=== PATIENT | female | born 1930 | race Hispanic/Latino ===

== ENCOUNTER 2017-07-27 07:52 | Inpatient (IN) | payer MEDICARE, OTHER ==
--- NOTE | 2017-07-27 08:37 | C.PDOC ---
History Of Present Illness 87 year old female presents to the ED with complaints of right hip pain, status post mechanical fall just [employer]. Patient reports she reached for her bag and fell , injuring her right hip. Patient denies precipitating symptoms, including syncope, dizziness, chest pain, shortness of breath, or headache. - HPI Time Seen by Provider: 07/27/17 08:01 Chief Complaint (Nursing): Trauma History Per: Patient History/Exam Limitations: no limitations Onset/Duration Of Symptoms: Mins Injury Occurred (Timing): Just Before Arrival Location Of Injury: Right: Hip Recent travel outside of the [place]: No - Fall Fall:Prior To Injury: Other (mechanical fell ) Past Medical History Reviewed: Historical Data, Nursing Documentation, Vital Signs Vital Signs: Last Vital Signs Temp 98.2 F 07/27/17 10:56 Pulse 77 07/27/17 10:56 Resp 17 07/27/17 10:56 BP 118/69 07/27/17 10:56 Pulse Ox 98 07/27/17 12:10 - Medical History PMH: HTN Family History: States: Unknown Family Hx - Social History Hx Alcohol Use: No Hx Substance Use: No Review Of Systems Constitutional: Negative for: Fever, Chills Cardiovascular: Negative for: Chest Pain, Palpitations Respiratory: Negative for: Cough, Shortness of Breath Gastrointestinal: Negative for: Nausea, Vomiting, Abdominal Pain, Diarrhea Musculoskeletal: Positive for: Other (right hip pain ) Neurological: Negative for: Weakness, Numbness Physical Exam - Physical Exam Appears: Non-toxic, No Acute Distress Skin: Warm, Dry, No Rash, Other (skin tear to left elbow ) Head: Atraumatic, Normacephalic, No Tenderness Eye(s): bilateral: Normal Inspection, PERRL, EOMI Oral Mucosa: Moist Neck: No Midline Cervical Tenderness, No Paracervical Tenderness, No Step Off Deformity, Supple Chest: Symmetrical, No Deformity Cardiovascular: Rhythm Regular, No Murmur Respiratory: No Rales, No Rhonchi, No Wheezing, Other (clear to auscultation bilaterally ) Gastrointestinal/Abdominal: Soft, No Tenderness, No Distention, No Guarding, No Rebound Back: No Vertebral Tenderness, No Paraspinal Tenderness Extremity: Tenderness (lateral right hip tenderness with N/V intact ), No Pedal Edema, No Calf Tenderness, Capillary Refill (< 2 seconds ), No Deformity, No Swelling ED Course And Treatment - Laboratory Results Result Diagrams: 07/27/17 10:30 07/27/17 10:30 ECG: Interpreted By Me, Viewed By Me ECG Rhythm: Sinus Rhythm Interpretation Of ECG: Poor R wave progression, T-wave flattening, normal intervals, and atrifactual changes. Rate From EC O2 Sat by Pulse Oximetry: 98 (RA) Pulse Ox Interpretation: Normal - Radiology CXR: Viewed By Me, Read By Radiologist CXR Interpretation: Yes: No Acute Disease - Other Rad Right Hip X-Ray X-Ray: Viewed By Me, Read By Radiologist Interpretation: FINDINGS: Extensive stool and bowel gas impede optimal evaluation of potential sacral pathology. . Background generalized osteopenia noted. There is central postsurgical charito oriented in ring. Infero medial femoral spurring acetabular spurring present. Axial oriented joint-space narrowing most pronounced inferomedially. No fracture or dislocation suggested. Incidentally noted are hypertrophic productive osseous changes in the left hip as well. IMPRESSION: No fracture or dislocation. No lytic lesions. Generalized osteopenia. Bilateral hip osteoarthrosis. Postsurgical changes. - CT Scan/US Head CT W/O contrast Other Rad Studies (CT/US): Read By Radiologist, Radiology Report Reviewed CT/US Interpretation: FINDINGS: HEMORRHAGE: No intracranial hemorrhage. BRAIN : Diffuse atrophy with prominence of the ventricles and sulci noted. No mass effect or edema. Dense intracranial atherosclerosis. Scattered periventricular and subcortical white matter hypodensities, which are nonspecific, but often seen with chronic microvascular ischemic disease. Please note that MRI with diffusion imaging is more sensitive in the detection of acute ischemic event. VENTRICLES: No hydrocephalus. CALVARIUM: Unremarkable. PARANASAL SINUSES: Unremarkable as visualized. No significant inflammatory changes. MASTOID AIR CELLS: Fluid within bilateral mastoid air cells ; correlate for mastoiditis. OTHER FINDINGS: None. IMPRESSION: Generalized atrophy. Nonspecific white matter changes. Fluid within bilateral mastoid air cells; correlate for mastoiditis Progress Note: Head CT w/o contrast, EKG, blood work, labs, CXR, and right hip X -Ray was ordered. - Physician Consult Information Time Consulting Physician Contacted: 11:36 Physician Contacted: Anupam Young Outcome Of Conversation: Dr. Young agrees to admit patient to [facility] for near syncope and hypokalemia. Disposition Discussed With : Anupam Young Counseled Patient/Family Regarding: Studies Performed, Diagnosis - Disposition Disposition: HOSPITALIZED Disposition Time: 12:09 Condition: FAIR - Clinical Impression Clinical Impression: Hypokalemia, Near syncope Clinical Impression: (Ruled Out): Symptomatic anemia - Scribe Statement The provider has reviewed the documentation as recorded by the Shiraibshivam Godfrey All medical record entries made by the Gregoria were at my direction and personally dictated by me. I have reviewed the chart and agree that the record accurately reflects my personal performance of the history, physical exam, medical decision making, and the department course for this patient. I have also personally directed, reviewed, and agree with the discharge instructions and disposition.
--- NOTE | 2017-07-27 10:17 | CT ---
PROCEDURE: CT HEAD WITHOUT CONTRAST. HISTORY: R/O Bleed COMPARISON: None available. TECHNIQUE: Axial computed tomography images were obtained through the head/brain without intravenous contrast. Radiation dose: Total exam DLP = 701.95 mGy-cm. This CT exam was performed using one or more of the following dose reduction techniques: Automated exposure control, adjustment of the mA and/or kV according to patient size, and/or use of iterative reconstruction technique. FINDINGS: HEMORRHAGE: No intracranial hemorrhage. BRAIN: Diffuse atrophy with prominence of the ventricles and sulci noted. No mass effect or edema. Dense intracranial atherosclerosis. Scattered periventricular and subcortical white matter hypodensities, which are nonspecific, but often seen with chronic microvascular ischemic disease. Please note that MRI with diffusion imaging is more sensitive in the detection of acute ischemic event. VENTRICLES: No hydrocephalus. CALVARIUM: Unremarkable. PARANASAL SINUSES: Unremarkable as visualized. No significant inflammatory changes. MASTOID AIR CELLS: Fluid within bilateral mastoid air cells ; correlate for mastoiditis. OTHER FINDINGS: None. IMPRESSION: Generalized atrophy. Nonspecific white matter changes. Fluid within bilateral mastoid air cells; correlate for mastoiditis
[2017-07-27 10:38] LABS: BASO % 0.1 % (0.0-2.0); HEMATOCRIT 30.7 % (34.0-47.0); LYMPH # 0.7 K/uL (1.0-4.3); LYMPH % 9.6 % (20.0-40.0); MEAN CELL VOLUME 91.1 fL (81.0-99.0); MEAN CORPUSCULAR HEMOGLOBIN 29.9 pg (27.0-31.0); MEAN CORPUSCULAR HGB CONC 32.8 g/dL (33.0-37.0); MEAN PLATELET VOLUME 6.6 fL (7.2-11.7); MONO # 0.5 K/uL (0.0-0.8); MONO % 5.8 % (0.0-10.0); PLATELET COUNT 213 K/uL (130-400); RED CELL DISTRIBUTION WIDTH 15.1 % (11.5-14.5); WHITE BLOOD COUNT 7.8 K/uL (4.8-10.8)
[2017-07-27 10:45] LABS: INR 1.2
--- NOTE | 2017-07-27 10:49 | RAD ---
PROCEDURE: CHEST RADIOGRAPH, 1 VIEW HISTORY: SOB COMPARISON: None. FINDINGS: LUNGS: Fibronodular changes primarily in the apices with pleural parenchymal thickening. No discrete nodules, masses or infiltrates findings are likely the sequela of exposure to granulomatous disease. PLEURA: No pneumothorax or pleural fluid seen. CARDIOVASCULAR: No radiographic findings to suggest acute or significant cardiovascular disease. OSSEOUS STRUCTURES: No significant abnormalities. VISUALIZED UPPER ABDOMEN: Normal. OTHER FINDINGS: None. IMPRESSION: No active disease.
--- NOTE | 2017-07-27 10:50 | RAD ---
PROCEDURE: HISTORY: fall COMPARISON: None TECHNIQUE: AP view of the pelvis and applicable frog leg views obtained. FINDINGS: Extensive stool and bowel gas impede optimal evaluation of potential sacral pathology. . Background generalized osteopenia noted. There is central postsurgical charito oriented in ring. Infero medial femoral spurring acetabular spurring present. Axial oriented joint-space narrowing most pronounced inferomedially. No fracture or dislocation suggested. Incidentally noted are hypertrophic productive osseous changes in the left hip as well. IMPRESSION: No fracture or dislocation. No lytic lesions. Generalized osteopenia. Bilateral hip osteoarthrosis. Postsurgical changes.
[2017-07-27 11:20] LABS: NEUTROPHIL 88 % (50-75); TOTAL CELLS COUNTED 100
[2017-07-27 11:22] LABS: ALKALINE PHOSPHATASE 101 U/L (38-126); ALT/SGPT 35 U/L (9-52); BLOOD UREA NITROGEN 22 mg/dL (7-17); CALCIUM 7.3 mg/dl (8.6-10.4); CARBON DIOXIDE 32 mmol/L (22-30); CHLORIDE 95 mmol/L (98-107); GFR AFRICAN-AMERICAN > 60; GLUCOSE,RANDOM 62 mg/dL (65-105); SODIUM 134 mmol/L (132-148); TOTAL PROTEIN 5.3 g/dL (6.3-8.3)
[2017-07-27] MEDS ORDERED: Potassium Chloride 20 mEq ER Tab PO ONE ×2 (11:35→11:40)
[2017-07-27] MEDS: Potassium Chloride 20 mEq ER Tab PO SCH (11:37)
[2017-07-27 11:38] LABS: ALB/GLOB RATIO 1.2 (1.0-2.1); AST/SGOT 34 U/L (14-36); POTASSIUM 2.5 mmol/L (3.6-5.2)
[2017-07-27] MEDS ORDERED: [UNRECOGNIZED DRUG - OTHER] IV SCH (11:45)
[2017-07-27] MEDS ORDERED: POTASSIUM CH IV SCH (11:45)
[2017-07-27] MEDS ORDERED: D5 IV SCH (11:45)
[2017-07-27] MEDS ORDERED: Tramadol 25 mg PO PRN (18:28)
--- NOTE | 2017-07-27 21:48 | CP.PCM.HP ---
History of Present Illness - History of Present Illness History of Present Illness: 87 years old female felt at home and hit her right hip to the floor. She denies any dizziness, any palpitation, any loss of conciousness, Now she is complaining of a severe right hip pain. A CT scan of the head reveals fluid in the mastoid air cells, brain atrophy. Right hip X ray did not reveal any dislocation or fracture. Her K+: 2.5 and Hgb: 10.1. She is also complaining of diarrhea on and off for the past few months. According to her son, she is slightly confused, and lives alone in her own home. Present on Admission - Present on Admission Any Indicators Present on Admission: No Review of Systems - Gastrointestinal Gastrointestinal: Diarrhea - Neurological Neurological: Weakness Past Patient History - Past Medical History & Family History Past Medical History?: Yes - Past Social History Smoking Status: Never Smoked Alcohol: None Drugs: Denies Home Situation {Lives}: Alone - CARDIAC Hx Cardiac Disorders: Yes Hx Hypertension: Yes - PULMONARY Hx Respiratory Disorders: No - NEUROLOGICAL Hx Neurological Disorder: No - HEENT Hx HEENT Problems: No - RENAL Hx Chronic Kidney Disease: No - ENDOCRINE/METABOLIC Hx Endocrine Disorders: Yes Hx Hypothyroidism: Yes - HEMATOLOGICAL/ONCOLOGICAL Hx Blood Disorders: No - INTEGUMENTARY Hx Dermatological Problems: No - MUSCULOSKELETAL/RHEUMATOLOGICAL Hx Musculoskeletal Disorders: Yes Hx Falls: Yes - GASTROINTESTINAL Hx Gastrointestinal Disorders: Yes Hx Diarrhea: Yes (FEW MONTHS) - GENITOURINARY/GYNECOLOGICAL Hx Genitourinary Disorders: No - PSYCHIATRIC Hx Substance Use: No - SURGICAL HISTORY Hx Surgeries: No - ANESTHESIA Hx Anesthesia: No Hx Anesthesia Reactions: No Meds Allergies/Adverse Reactions: Allergies Allergy/AdvReac Type Severity Reaction Status Date / Time No Known Allergies Allergy Verified 07/27/17 08:48 Physical Exam - Constitutional Appears: No Acute Distress, Cachectic, Chronically Ill - Head Exam Head Exam: NORMAL INSPECTION - Eye Exam Eye Exam: Normal appearance - ENT Exam ENT Exam: Normal Exam - Neck Exam Neck exam: Positive for: Normal Inspection - Respiratory Exam Respiratory Exam: Clear to Auscultation Bilateral - Cardiovascular Exam Cardiovascular Exam: REGULAR RHYTHM - GI/Abdominal Exam GI & Abdominal Exam: Normal Bowel Sounds, Soft - Rectal Exam Rectal Exam: Deferred - Extremities Exam Extremities exam: Positive for: pedal edema - Back Exam Back exam: NORMAL INSPECTION - Neurological Exam Neurological exam: Alert, Oriented x3 - Psychiatric Exam Psychiatric exam: Anxious - Skin Skin Exam: Dry, Intact, Normal Color, Warm Results - Vital Signs Recent Vital Signs: Last Vital Signs Temp 97.5 F L 07/27/17 15:59 Pulse 72 07/27/17 15:59 Resp 20 07/27/17 15:59 BP 145/70 07/27/17 15:59 Pulse Ox 99 07/27/17 15:59 - Labs Result Diagrams: 07/27/17 10:30 07/27/17 10:30 Labs: Laboratory Results - last 24 hr 07/27/17 07/27/17 07/27/17 10:30 10:30 10:30 WBC 7.8 RBC 3.37 L Hgb 10.1 L Hct 30.7 L MCV 91.1 MCH 29.9 MCHC 32.8 L RDW 15.1 H Plt Count 213 MPV 6.6 L Neut % (Auto) 84.5 H Lymph % (Auto) 9.6 L Dickson % (Auto) 5.8 Eos % (Auto) 0.0 Baso % (Auto) 0.1 Neut # 6.6 Lymph # 0.7 L Dickson # 0.5 Eos # 0.0 Baso # 0.0 Neutrophils % (Manual) 88 H Band Neutrophils % 3 H Lymphocytes % (Manual) 7 L Monocytes % (Manual) 2 Platelet Estimate Normal Polychromasia Slight Hypochromasia (manual) Slight Anisocytosis (manual) Slight Ovalocytes Slight PT 13.6 H INR 1.2 APTT 30 Sodium 134 Potassium 2.5 L* Chloride 95 L Carbon Dioxide 32 H Anion Gap 10 BUN 22 H Creatinine 0.7 Est GFR ( Amer) > 60 Est GFR (Non-Af Amer) > 60 Random Glucose 62 L Calcium 7.3 L Total Bilirubin 2.0 H AST 34 ALT 35 Alkaline Phosphatase 101 Total Creatine Kinase 223 H Troponin I 0.0120 Total Protein 5.3 L Albumin 2.8 L Globulin 2.4 Albumin/Globulin Ratio 1.2 Assessment & Plan (1) Hypokalemia Assessment and Plan: Replace K+. Status: Acute (2) Fall Status: Acute (3) Anemia Assessment and Plan: R/o GI bleeding. Status: Acute (4) Malnutrition Assessment and Plan: Social service evaluation, and physical therapy. Status: Acute Decision To Admit - Pt Status Changed To: Hospital Disposition Of: Inpatient - Admit Certification Admit to Inpatient:: After my assessment, the patient will require hospitalization for at least two midnights. This is because of the severity of symptoms shown, intensity of services needed, and/or the medical risk in this patient being treated as an outpatient. - InPatient: Physician Admission Certification:: After my assessements, the patient requires hospitalization for at least 2 midnights. - . Bed Request Type: Telemetry Admitting Physician: Anupam Young
[2017-07-28] MEDS: Levothyroxine 25 MCG TAB PO SCH (05:39)
[2017-07-28 07:01] LABS: BASO % 0.3 % (0.0-2.0); EOS % 0.2 % (0.0-4.0); HEMATOCRIT 27.3 % (34.0-47.0); LYMPH # 1.1 K/uL (1.0-4.3); LYMPH % 24.6 % (20.0-40.0); MEAN CELL VOLUME 91.5 fL (81.0-99.0); MEAN CORPUSCULAR HEMOGLOBIN 30.9 pg (27.0-31.0); MEAN CORPUSCULAR HGB CONC 33.7 g/dL (33.0-37.0); MEAN PLATELET VOLUME 6.9 fL (7.2-11.7); MONO # 0.3 K/uL (0.0-0.8); MONO % 7.2 % (0.0-10.0); RED CELL DISTRIBUTION WIDTH 15.8 % (11.5-14.5); WHITE BLOOD COUNT 4.7 K/uL (4.8-10.8)
[2017-07-28 07:31] LABS: IRON 21 ug/dL (37-170)
[2017-07-28 07:43] LABS: ALKALINE PHOSPHATASE 90 U/L (38-126); ALT/SGPT 33 U/L (9-52); AST/SGOT 29 U/L (14-36); BILIRUBIN,TOTAL 1.5 mg/dL (0.2-1.3); BLOOD UREA NITROGEN 23 mg/dL (7-17); CALCIUM 7.2 mg/dl (8.6-10.4); CARBON DIOXIDE 32 mmol/L (22-30); CHLORIDE 97 mmol/L (98-107); GFR AFRICAN-AMERICAN > 60; GLUCOSE,RANDOM 61 mg/dL (65-105); POTASSIUM 3.2 mmol/L (3.6-5.2); SODIUM 133 mmol/L (132-148); TOTAL PROTEIN 4.7 g/dL (6.3-8.3)
[2017-07-28 08:02] LABS: THYROID STIMULATING HORMONE 2.55 mIU/L (0.46-4.68)
[2017-07-28 08:36] LABS: FOLATE 8.9 ng/mL
[2017-07-28] MEDS: Enoxaparin 40 mg Syringe SC SCH (09:13)
[2017-07-28] MEDS: Potassium Chloride 20 mEq ER Tab PO SCH (10:00)
[2017-07-28] MEDS ORDERED: Potassium Chloride 20 mEq/15 ml LIQ UD PO STA (20:14)
--- NOTE | 2017-07-28 21:01 | CP.PCM.PN ---
Subjective - Date & Time of Evaluation Date of Evaluation: 07/28/17 Time of Evaluation: 20:54 - Subjective Subjective: Patient remains weak, with appetite. BP: 102/60 HR: 66 regular. Afebrile. Hgb: 9.2 Serum iron : low. Stools for OB: negative. Stools for leucocytes: negative. Liver enzymes slightly elevated. Serum protein and albumin :low. K+: 3.2. Wll replace Potassiium, order a CTscan of the abdomen and pelvis, get serum marker for occult malignacy. To continue sacral wound care, biomedical engineering internship evaluation, and physical therapy. Objective - Vital Signs/Intake and Output Vital Signs (last 24 hours): Temp Pulse Resp BP Pulse Ox 98.2 F 65 18 120/57 L 96 07/28/17 15:12 07/28/17 15:55 07/28/17 15:12 07/28/17 15:12 07/28/17 15:12 Intake and Output: 07/28/17 07/29/17 18:59 06:59 Intake Total 250 Output Total 1 Balance 249 - Medications Medications: Current Medications Atenolol (Tenormin) 50 mg PO DAILY [facility] Last Admin: 07/28/17 09:14 Dose: 50 mg Enoxaparin Sodium (Lovenox) 40 mg SC DAILY [facility] Last Admin: 07/28/17 09:13 Dose: 40 mg Ferrous Sulfate (Feosol) 325 mg PO DAILY [facility] Potassium Chloride/Dextrose/Sod Cl (Potassium Chl 20 Meq In D5-1/2ns) 100 mls @ 0 mls/hr IV .Q0M [facility] PRN Reason: Per Protocol Last Admin: 07/27/17 14:05 Dose: 100 mls/hr Levothyroxine Sodium (Synthroid) 25 mcg PO DAILY@0630 [facility] Last Admin: 07/28/17 05:39 Dose: 25 mcg Potassium Chloride (K-Dur 20 Meq Er Tab) 40 meq PO DAILY [facility] Last Admin: 07/28/17 10:00 Dose: 40 meq Tramadol HCl (Ultram) 25 mg PO TID PRN PRN Reason: Pain, moderate (4-7) - Labs Labs: 07/28/17 06:49 07/28/17 06:49 PT 13.6 SECONDS (9.7-12.2) H 07/27/17 10:30 INR 1.2 07/27/17 10:30 APTT 30 SECONDS (21-34) 07/27/17 10:30 - Constitutional Appears: No Acute Distress, Cachectic, Chronically Ill - Head Exam Head Exam: NORMAL INSPECTION - Eye Exam Eye Exam: Normal appearance - ENT Exam ENT Exam: Mucous Membranes Moist, Normal Exam - Cardiovascular Exam Cardiovascular Exam: REGULAR RHYTHM - GI/Abdominal Exam GI & Abdominal Exam: Soft, Normal Bowel Sounds - Rectal Exam Rectal Exam: Deferred - Extremities Exam Extremities Exam: Normal Inspection - Back Exam Back Exam: NORMAL INSPECTION - Neurological Exam Neurological Exam: Alert, Awake, Oriented x3 - Psychiatric Exam Psychiatric exam: Anxious - Skin Additional comments: Sacral ulcer. Assessment and Plan (1) Hypokalemia Assessment & Plan: Today K+: 3.2. To give KCl 40 mEq PO stat. Status: Acute (2) Fall Status: Acute (3) Anemia Assessment & Plan: iron deficient. To replace with Ferrous sulfate PO. Status: Acute (4) Malnutrition Assessment & Plan: biomedical engineering internship cici. Status: Acute
[2017-07-29] MEDS: Levothyroxine 25 MCG TAB PO SCH (06:00)
[2017-07-29 07:43] LABS: BASO % 0.2 % (0.0-2.0); LYMPH # 1.5 K/uL (1.0-4.3); LYMPH % 14.9 % (20.0-40.0); MEAN CELL VOLUME 92.9 fL (81.0-99.0); MEAN CORPUSCULAR HEMOGLOBIN 29.9 pg (27.0-31.0); MEAN CORPUSCULAR HGB CONC 32.2 g/dL (33.0-37.0); MEAN PLATELET VOLUME 7.3 fL (7.2-11.7); MONO # 0.6 K/uL (0.0-0.8); MONO % 5.6 % (0.0-10.0); NRBC % 0.3 % (0.0-2.0); RED CELL DISTRIBUTION WIDTH 15.9 % (11.5-14.5)
[2017-07-29 07:54] LABS: ALB/GLOB RATIO 0.7 (1.0-2.1); ALKALINE PHOSPHATASE 101 U/L (38-126); ALT/SGPT 30 U/L (9-52); AST/SGOT 27 U/L (14-36); BILIRUBIN,TOTAL 0.9 mg/dL (0.2-1.3); BLOOD UREA NITROGEN 24 mg/dL (7-17); CALCIUM 7.5 mg/dl (8.6-10.4); CARBON DIOXIDE 28 mmol/L (22-30); CHLORIDE 99 mmol/L (98-107); GFR AFRICAN-AMERICAN > 60; GLUCOSE,RANDOM 93 mg/dL (65-105); POTASSIUM 4.4 mmol/L (3.6-5.2); SODIUM 132 mmol/L (132-148); TOTAL PROTEIN 5.8 g/dL (6.3-8.3)
[2017-07-29 08:37] LABS: CARCINOEMBRYONIC ANTIGEN 5.6 ng/mL (0-3.0)
[2017-07-29 08:38] LABS: CA 19-9 22.7 U/mL (0-37)
--- NOTE | 2017-07-29 08:42 | CARD ---
APPROVED REPORT EKG Measurement Heart [id number] <Conclusion> Accelerated Junctional rhythm Anterior infarct, age undetermined Abnormal ECG
[2017-07-29] MEDS: Potassium Chloride 20 mEq ER Tab PO SCH (10:00)
[2017-07-29] MEDS: Dextrose 5%/0.45% NS 1,000 ML IV SCH (11:00)
[2017-07-29 11:52] LABS: AMYLASE 41 U/L (30-110)
[2017-07-29] MEDS: Enoxaparin 40 mg Syringe SC SCH (12:00)
[2017-07-29 13:02] LABS: FOLATE 11.2 ng/mL
[2017-07-29] MEDS ORDERED: Iodixanol 320 MG/ML 100 ML BOTTLE IV ONE (13:48)
--- NOTE | 2017-07-29 14:55 | CT ---
PROCEDURE: CT Abdomen and Pelvis with contrast HISTORY: persistent diarrhea, anemia, low serum iron. COMPARISON: None. TECHNIQUE: Contrast dose: 100 mL Visipaque 320 Radiation dose: Total exam DLP = 403.13 mGy-cm. This CT exam was performed using one or more of the following dose reduction techniques: Automated exposure control, adjustment of the mA and/or kV according to patient size, and/or use of iterative reconstruction technique. FINDINGS: LOWER THORAX: Small left and trace right pleural effusion. Questionable scar versus mass only partially included on the 1st image in this examination, in the right middle lobe. The visualized portion measures roughly 11 mm in diameter. Recommend further evaluation with CT chest examination. LIVER: Normal size, contour and attenuation. Nonspecific 4 mm low-attenuation lesion in the medial left lobe of the liver. No other mass. No biliary dilatation. GALLBLADDER AND BILE DUCTS: Status post cholecystectomy. PANCREAS: Unremarkable. No gross lesion or ductal dilatation. SPLEEN: Unremarkable. ADRENALS: Unremarkable. No mass. KIDNEYS AND URETERS: Left upper pole renal cortical cyst, 3.7 cm diameter. No renal calculus or hydronephrosis. VASCULATURE: Unremarkable. No aortic aneurysm. BOWEL: Distended loops of colon with partially liquified fecal matter. Colon measures up to 7.1 cm in diameter. Likely colonic ileus. No evidence of bowel obstruction. APPENDIX: Not identified. PERITONEUM: No ascites. LYMPH NODES: Unremarkable. No enlarged lymph nodes. BLADDER: Poorly distended. No gross abnormality. REPRODUCTIVE: Atrophic uterus. BONES: Comminuted minimally displaced fracture of the right inferior pubic ramus. No other pelvic fracture is identified. OTHER FINDINGS: Generalized anasarca. Cachexia. IMPRESSION: Probable colonic ileus. Comminuted minimally displaced fracture of the right inferior pubic ramus without evidence of callus. Scar versus mass in right middle lobe only partially included in the 1st image in this examination. Recommend evaluation with CT chest. Additional minor findings as above. The findings in this examination, specifically in regard to the right inferior pubic ramus fracture, were discussed by telephone with Nurse Dacosta at 2:45 p.m. on 07/29/2017.
--- NOTE | 2017-07-29 17:18 | CP.PCM.PN ---
Subjective - Date & Time of Evaluation Date of Evaluation: 07/29/17 Time of Evaluation: 17:14 - Subjective Subjective: Patient vomitted a few times this AM, was given Zofran and IVF. Has no nausea now and wants to eat. CT scan of the abdomen and pelvis reveals a non displaced fracture of the inferior ramus of the right pubis bone, and a questionable mass of the RML of the lung. Patient remains weak, but has no SOB, no diarrhea, no pain. Objective - Vital Signs/Intake and Output Vital Signs (last 24 hours): Temp Pulse Resp BP Pulse Ox 98.2 F 77 20 155/81 H 98 07/29/17 15:00 07/29/17 15:00 07/29/17 15:00 07/29/17 15:00 07/29/17 15:00 Intake and Output: 07/29/17 07/29/17 06:59 18:59 Intake Total 320 360 Balance 320 360 - Medications Medications: Current Medications Atenolol (Tenormin) 50 mg PO DAILY [facility] Last Admin: 07/28/17 09:14 Dose: 50 mg Enoxaparin Sodium (Lovenox) 40 mg SC DAILY [facility] Last Admin: 07/28/17 09:13 Dose: 40 mg Ferrous Sulfate (Feosol) 325 mg PO DAILY [facility] Potassium Chloride/Dextrose/Sod Cl (Potassium Chl 20 Meq In D5-1/2ns) 100 mls @ 0 mls/hr IV .Q0M [facility] PRN Reason: Per Protocol Last Admin: 07/27/17 14:05 Dose: 100 mls/hr Dextrose/Sodium Chloride (Dextrose 5%/0.45% Ns 1000 Ml) 1,000 mls @ 60 mls/hr IV .[id number] [facility] Last Admin: 07/29/17 11:00 Dose: 60 mls/hr Levothyroxine Sodium (Synthroid) 25 mcg PO DAILY@0630 [facility] Last Admin: 07/29/17 06:00 Dose: 25 mcg Ondansetron HCl (Zofran Inj) 4 mg IVP Q4 PRN PRN Reason: vomitting Last Admin: 07/29/17 11:22 Dose: 4 mg Potassium Chloride (K-Dur 20 Meq Er Tab) 40 meq PO DAILY [facility] Last Admin: 07/28/17 10:00 Dose: 40 meq Tramadol HCl (Ultram) 25 mg PO TID PRN PRN Reason: Pain, moderate (4-7) - Labs Labs: 07/29/17 07:18 07/29/17 07:18 PT 13.6 SECONDS (9.7-12.2) H 07/27/17 10:30 INR 1.2 07/27/17 10:30 APTT 30 SECONDS (21-34) 07/27/17 10:30 - Constitutional Appears: No Acute Distress, Cachectic, Chronically Ill - Head Exam Head Exam: NORMAL INSPECTION - Eye Exam Eye Exam: Normal appearance - ENT Exam ENT Exam: Normal Exam - Neck Exam Neck Exam: Normal Inspection - Respiratory Exam Respiratory Exam: Clear to Ausculation Bilateral, NORMAL BREATHING PATTERN - Cardiovascular Exam Cardiovascular Exam: REGULAR RHYTHM - GI/Abdominal Exam GI & Abdominal Exam: Soft, Normal Bowel Sounds - Rectal Exam Rectal Exam: Deferred - Extremities Exam Extremities Exam: Normal Inspection - Back Exam Back Exam: NORMAL INSPECTION - Neurological Exam Neurological Exam: Alert, Awake, Oriented x3 - Psychiatric Exam Psychiatric exam: Anxious - Skin Skin Exam: Dry, Intact, Normal Color, Warm Assessment and Plan (1) Hypokalemia Status: Resolved (2) Fall Assessment & Plan: CT scan reveals a non-displaced FX of the inferior ramus of the right pubic bone. Status: Acute (3) Anemia Assessment & Plan: To continue ferrous sulfate. Status: Chronic (4) Malnutrition Assessment & Plan: To restart full liquid diet with ensure one can 3 times a day. Status: Chronic
[2017-07-30] MEDS: Levothyroxine 25 MCG TAB PO SCH (05:41)
[2017-07-30] MEDS: Dextrose 5%/0.45% NS 1,000 ML IV SCH ×3 (06:37→21:58)
[2017-07-30] MEDS: Potassium Chloride 20 mEq ER Tab PO SCH (09:55)
[2017-07-30] MEDS: Enoxaparin 40 mg Syringe SC SCH (10:04)
--- NOTE | 2017-07-30 19:20 | CP.PCM.CON ---
History of Present Illness - History of Present Illness History of Present Illness: This is an 87 year old woman with nausea and vomiting. Patient is a poor historian. She had a colonoscopy at least 15 years ago, but the results are unavailable. She has a history of diarrhea for at least the last year and a half, 1-3 times a day, soft, without visible blood. She was seen in the office on 02/20/16, but did not follow through with suggestions to analyze the stool. She presented to the ER on 07/27/17 with right hip pain following a fall and was found to have a comminuted fracture of the right inferior pubic ramus. CT scan also showed distention of the colon attributed to colonic ileus. Patient has had nausea and vomiting, but denies having abdominal pain, heartburn, or difficulty swallowing. The son thinks she has lost weight, but cannot quantify the amount. She denies having diarrhea, constipation or rectal bleeding at present. Review of Systems - Review of Systems All systems: reviewed and no additional remarkable complaints except - Constitutional Constitutional: absent: Chills, Fever - Cardiovascular Cardiovascular: absent: Chest Pain, Palpitations - Respiratory Respiratory: absent: Cough, Dyspnea - Gastrointestinal Gastrointestinal: absent: Abdominal Pain, Constipation, Diarrhea, Dysphagia, Heartburn, Hematochezia - Musculoskeletal Musculoskeletal: Other Additional comments: Right hip pain - Neurological Neurological: absent: Numbness, Weakness Past Patient History - Past Medical History & Family History Past Medical History?: Yes - Past Social History Smoking Status: Never Smoked Alcohol: None Drugs: Denies Home Situation {Lives}: Alone - CARDIAC Hx Hypertension: Yes - PULMONARY Hx Respiratory Disorders: No - NEUROLOGICAL Hx Neurological Disorder: No - HEENT Hx HEENT Problems: No - RENAL Hx Chronic Kidney Disease: No - ENDOCRINE/METABOLIC Hx Endocrine Disorders: Yes Hx Hypothyroidism: Yes - HEMATOLOGICAL/ONCOLOGICAL Hx Blood Disorders: No - INTEGUMENTARY Hx Dermatological Problems: No - MUSCULOSKELETAL/RHEUMATOLOGICAL Hx Musculoskeletal Disorders: Yes Hx Falls: Yes - GASTROINTESTINAL Hx Gastrointestinal Disorders: Yes Hx Diarrhea: Yes (FEW MONTHS) - GENITOURINARY/GYNECOLOGICAL Hx Genitourinary Disorders: No - PSYCHIATRIC Hx Substance Use: No - SURGICAL HISTORY Hx Surgeries: No - ANESTHESIA Hx Anesthesia: No Hx Anesthesia Reactions: No Meds Allergies/Adverse Reactions: Allergies Allergy/AdvReac Type Severity Reaction Status Date / Time No Known Allergies Allergy Verified 07/27/17 08:48 - Medications Medications: Current Medications Atenolol (Tenormin) 50 mg PO DAILY [facility] Last Admin: 07/30/17 09:50 Dose: 50 mg Enoxaparin Sodium (Lovenox) 40 mg SC DAILY [facility] Last Admin: 07/30/17 10:04 Dose: 40 mg Ferrous Sulfate (Feosol) 325 mg PO DAILY [facility] Last Admin: 07/30/17 09:51 Dose: 325 mg Dextrose/Sodium Chloride (Dextrose 5%/0.45% Ns 1000 Ml) 1,000 mls @ 60 mls/hr IV .[id number] [facility] Last Admin: 07/30/17 06:37 Dose: 60 mls/hr Levothyroxine Sodium (Synthroid) 25 mcg PO DAILY@0630 [facility] Last Admin: 07/30/17 05:41 Dose: 25 mcg Ondansetron HCl (Zofran Inj) 4 mg IVP Q4 PRN PRN Reason: vomitting Last Admin: 07/30/17 18:07 Dose: 4 mg Potassium Chloride (K-Dur 20 Meq Er Tab) 40 meq PO DAILY [facility] Last Admin: 07/30/17 09:55 Dose: 40 meq Tramadol HCl (Ultram) 25 mg PO TID PRN PRN Reason: Pain, moderate (4-7) Physical Exam - Head Exam Head Exam: ATRAUMATIC - Eye Exam Eye Exam: EOMI, PERRL - Neck Exam Neck exam: Negative for: Lymphadenopathy, Thyromegaly - Respiratory Exam Respiratory Exam: NORMAL BREATHING PATTERN. absent: Rales, Rhonchi, Wheezes - Cardiovascular Exam Cardiovascular Exam: REGULAR RHYTHM, +S1, +S2. absent: Gallop, Rubs, Systolic Murmur - GI/Abdominal Exam GI & Abdominal Exam: Distended, Normal Bowel Sounds, Soft. absent: Tenderness Additional comments: Tympanitic percussion note - Rectal Exam Rectal Exam: Deferred - Extremities Exam Extremities exam: Negative for: calf tenderness, pedal edema Results - Vital Signs Recent Vital Signs: Last Vital Signs Temp 97.8 F 07/30/17 15:10 Pulse 63 07/30/17 15:10 Resp 20 07/30/17 15:10 BP 149/71 07/30/17 15:10 Pulse Ox 97 07/30/17 15:10 - Labs Result Diagrams: 07/29/17 07:18 07/29/17 07:18 Assessment & Plan (1) Abdominal distention Assessment and Plan: Patient denies having diarrhea at present, though nurses report nausea and vomiting. CT scan shows gaseous distention of the colon, and we will check an obstructive series. Plan is for EGD and colonoscopy next week. Status: Acute
--- NOTE | 2017-07-30 22:30 | CP.PCM.PN ---
Subjective - Date & Time of Evaluation Date of Evaluation: 07/30/17 Time of Evaluation: 20:00 - Subjective Subjective: Patient reused to eat dinner and vomitted coffee-ground materials today. CT scan of the chest was not done. Objective - Vital Signs/Intake and Output Vital Signs (last 24 hours): Temp Pulse Resp BP Pulse Ox 97.8 F 63 20 149/71 97 07/30/17 15:10 07/30/17 15:10 07/30/17 15:10 07/30/17 15:10 07/30/17 15:10 Intake and Output: 07/30/17 07/31/17 18:59 06:59 Intake Total 580 Balance 580 - Medications Medications: Current Medications Atenolol (Tenormin) 50 mg PO DAILY [facility] Last Admin: 07/30/17 09:50 Dose: 50 mg Enoxaparin Sodium (Lovenox) 40 mg SC DAILY [facility] Last Admin: 07/30/17 10:04 Dose: 40 mg Ferrous Sulfate (Feosol) 325 mg PO DAILY [facility] Last Admin: 07/30/17 09:51 Dose: 325 mg Dextrose/Sodium Chloride (Dextrose 5%/0.45% Ns 1000 Ml) 1,000 mls @ 60 mls/hr IV .[id number] [facility] Last Admin: 07/30/17 21:58 Dose: Not Given Levothyroxine Sodium (Synthroid) 25 mcg PO DAILY@0630 [facility] Last Admin: 07/30/17 05:41 Dose: 25 mcg Ondansetron HCl (Zofran Inj) 4 mg IVP Q4 PRN PRN Reason: vomitting Last Admin: 07/30/17 18:07 Dose: 4 mg Potassium Chloride (K-Dur 20 Meq Er Tab) 40 meq PO DAILY [facility] Last Admin: 07/30/17 09:55 Dose: 40 meq Tramadol HCl (Ultram) 25 mg PO TID PRN PRN Reason: Pain, moderate (4-7) - Labs Labs: 07/29/17 07:18 07/29/17 07:18 PT 13.6 SECONDS (9.7-12.2) H 07/27/17 10:30 INR 1.2 07/27/17 10:30 APTT 30 SECONDS (21-34) 07/27/17 10:30 - Constitutional Appears: No Acute Distress, Chronically Ill - Head Exam Head Exam: NORMAL INSPECTION - Eye Exam Eye Exam: Normal appearance - ENT Exam ENT Exam: Normal Exam - Neck Exam Neck Exam: Normal Inspection - Respiratory Exam Respiratory Exam: Clear to Ausculation Bilateral - Cardiovascular Exam Cardiovascular Exam: REGULAR RHYTHM, Murmur - GI/Abdominal Exam GI & Abdominal Exam: Soft, Normal Bowel Sounds - Rectal Exam Rectal Exam: Deferred - Extremities Exam Extremities Exam: Normal Inspection - Back Exam Back Exam: NORMAL INSPECTION - Neurological Exam Neurological Exam: Alert, Awake, Oriented x3 - Psychiatric Exam Psychiatric exam: Anxious - Skin Skin Exam: Dry, Intact, Normal Color, Warm Assessment and Plan (1) Hypokalemia Status: Resolved (2) Fall Assessment & Plan: Non displaced fracture of the inferior branch of the right pubic bone. Status: Acute (3) Anemia Status: Chronic (4) Malnutrition Assessment & Plan: Patient has very poor appetite. Vomited coffee-ground materials today. Will start on Protonix 40 mr IV qd. and repeat CBC in AM. Status: Chronic
[2017-07-31 06:41] LABS: HEMATOCRIT 30.9 % (34.0-47.0); LYMPH # 1.2 K/uL (1.0-4.3); LYMPH % 17.8 % (20.0-40.0); MEAN CELL VOLUME 92.3 fL (81.0-99.0); MEAN CORPUSCULAR HEMOGLOBIN 30.1 pg (27.0-31.0); MEAN CORPUSCULAR HGB CONC 32.6 g/dL (33.0-37.0); MONO # 0.4 K/uL (0.0-0.8); MONO % 6.3 % (0.0-10.0); NRBC % 0.1 % (0.0-2.0); WHITE BLOOD COUNT 6.7 K/uL (4.8-10.8)
[2017-07-31 06:52] LABS: MAGNESIUM 1.7 mg/dL (1.6-2.3); PHOSPHOROUS 3.3 mg/dL (2.5-4.5)
[2017-07-31] MEDS: Levothyroxine 25 MCG TAB PO SCH (07:19)
[2017-07-31] MEDS ORDERED: Iodixanol 320 MG/ML 100 ML BOTTLE IV ONE (08:25)
[2017-07-31] MEDS: Enoxaparin 40 mg Syringe SC SCH (10:20)
[2017-07-31] MEDS: Potassium Chloride 20 mEq ER Tab PO SCH (10:21)
[2017-07-31] MEDS: Pantoprazole 40 mg EC Tab PO SCH (10:21)
--- NOTE | 2017-07-31 10:39 | CP.PCM.PN ---
Subjective - Date & Time of Evaluation Date of Evaluation: 07/31/17 Time of Evaluation: 10:37 - Subjective Subjective: Covering Dr Gurrola CC; nausea/vomiting Poor appetite. Nauseated. Vomited coffee ground material (likely oral iron). No BMs Very hard of hearing. Objective - Vital Signs/Intake and Output Vital Signs (last 24 hours): Temp Pulse Resp BP Pulse Ox 98.2 F 67 20 124/67 97 07/31/17 07:00 07/31/17 07:00 07/31/17 07:00 07/31/17 07:00 07/31/17 07:00 Intake and Output: 07/31/17 07/31/17 06:59 18:59 Intake Total 480 Balance 480 - Medications Medications: Current Medications Atenolol (Tenormin) 50 mg PO DAILY [facility] Last Admin: 07/31/17 10:21 Dose: 50 mg Enoxaparin Sodium (Lovenox) 40 mg SC DAILY [facility] Last Admin: 07/31/17 10:20 Dose: 40 mg Ferrous Sulfate (Feosol) 325 mg PO DAILY [facility] Last Admin: 07/31/17 10:21 Dose: 325 mg Dextrose/Sodium Chloride (Dextrose 5%/0.45% Ns 1000 Ml) 1,000 mls @ 60 mls/hr IV .[id number] [facility] Last Admin: 07/30/17 21:58 Dose: Not Given Levothyroxine Sodium (Synthroid) 25 mcg PO DAILY@0630 [facility] Last Admin: 07/31/17 07:19 Dose: 25 mcg Ondansetron HCl (Zofran Inj) 4 mg IVP Q4 PRN PRN Reason: vomitting Last Admin: 07/31/17 07:25 Dose: 4 mg Pantoprazole Sodium (Protonix Ec Tab) 40 mg PO DAILY [facility] Last Admin: 07/31/17 10:21 Dose: 40 mg Potassium Chloride (K-Dur 20 Meq Er Tab) 40 meq PO DAILY [facility] Last Admin: 07/31/17 10:21 Dose: 40 meq Tramadol HCl (Ultram) 25 mg PO TID PRN PRN Reason: Pain, moderate (4-7) - Labs Labs: 07/31/17 06:32 07/29/17 07:18 PT 13.6 SECONDS (9.7-12.2) H 11/14/17 10:30 INR 1.2 07/27/17 10:30 APTT 30 SECONDS (21-34) 07/27/17 10:30 - Constitutional Appears: Cachectic, Chronically Ill - Head Exam Head Exam: ATRAUMATIC - Eye Exam Eye Exam: absent: Scleral icterus - ENT Exam ENT Exam: Normal Exam - Neck Exam Neck Exam: Normal Inspection - Respiratory Exam Respiratory Exam: NORMAL BREATHING PATTERN - Cardiovascular Exam Cardiovascular Exam: REGULAR RHYTHM - GI/Abdominal Exam GI & Abdominal Exam: Distended, Diminished Bowel Sounds. absent: Tenderness, Rebound (Surgical scars present. Tense and tympanic abdomen) - Rectal Exam Additional comments: Loose light brown stool, no masses or impactions. Abdominal distension relieved as flatus passed. Escorted by RN [place] - Extremities Exam Extremities Exam: Normal Inspection - Neurological Exam Neurological Exam: Alert Assessment and Plan (1) Abdominal distention Assessment & Plan: Likely Ileus. Now less distended after ARL[place]. Rec: Rectal tube decompression. Check abdominal plain film. Status: Acute (2) Anemia Assessment & Plan: Hgb 10, stable. Brown stool. Do not suspect GI bleed. "Coffee ground" emesis likely Iron Monitor Status: Chronic
--- NOTE | 2017-07-31 11:16 | CT ---
CT chest History: Infiltrate. Comparison: CT abdomen and pelvis dated 07/29/2017 Technique: Multiple contiguous axial images were performed through the chest with the use of intravenous contrast. Subsequently, sagittal and coronal reformatted images were obtained. This CT exam was performed using one or more of the following dose reduction techniques: Automated exposure control, adjustment of the mA and/or kV according to patient size, and/or use of iterative reconstruction technique. Findings: Small bilateral pleural effusions. Diffuse anasarca throughout the visualized subcutaneous soft tissues. No significant axillary adenopathy. 1 centimeter hypoechoic primarily cystic nodule in the left lobe of the thyroid inferiorly. Mild prominence of the ascending thoracic aorta measuring up to 3.1 centimeters. No significant pericardial effusion. Please see separate report for evaluation of the upper abdomen where there is a suggestion of a colonic ileus. Mild intrahepatic biliary ductal dilatation. Surgical clips in the right upper abdomen. Few scattered hypodensities in both kidneys, some of which are too small to characterize. Additional prominent 3.5 centimeter cyst emanating at the upper pole of the left kidney. Indeterminate focus/lesion within the lower pole of the right kidney measuring up to 1.2 centimeters. This may be better evaluated with multiphasic CT. Degenerative changes in the spine. Right lung: Apical pleural thickening and scarring. Few additional patchy areas of nodular consolidation seen within the right lung apex; for example, on series 3, image 23 measuring up to 8 millimeters which may be related to the scarring and or atelectasis. 6 millimeter subpleural nodular density seen at the posterior aspect of the right upper lobe on series 3, image 27. Again identified is a 1.5 x 1.0 centimeter focal area of nodular masslike consolidation seen within the anteromedial aspect of the right middle lobe on series 3, image 75. This may be related to focal scarring and or atelectasis. Interval followup CT study may be helpful to exclude additional etiology. Atelectasis within the right lower lobe adjacent to the pleural effusion. Left lung: Apical pleural thickening and scarring. 5 millimeter ground-glass nodule at the left lung apex medially. Focal atelectasis and/or scarring in the inferior aspect of the left upper lobe. Focal nodular consolidative changes seen within the lingula measuring 9 x 7 millimeters best seen on series 3, image 84. Atelectasis and or consolidation at the dependent portion of the left lower lobe adjacent to the pleural effusion. Trachea thru central airways are patent. Aortic calcification. Coronary calcification. Punctate splenic hypodensity. Impression: 1. Small bilateral pleural effusions. 2. Again identified is a 1.5 x 1.0 centimeter focal area of nodular masslike consolidation seen within the anteromedial aspect of the right middle lobe on series 3, image 75. This may be related to focal scarring and or atelectasis and or additional etiology. Interval followup CT study may be helpful to exclude additional etiology. 3. Few additional patchy areas of nodular consolidation seen within the right lung apex; for example, on series 3, image 23 measuring up to 8 millimeters which may be related to the scarring and or atelectasis. 4. 6 millimeter subpleural nodular density seen at the posterior aspect of the right upper lobe on series 3, image 27. 5. Atelectasis within the right lower lobe adjacent to the pleural effusion. 6. 5 millimeter ground-glass nodule at the left lung apex medially. 7. Focal atelectasis and/or scarring in the inferior aspect of the left upper lobe. 8. Focal nodular consolidative changes seen within the lingula measuring 9 x 7 millimeters best seen on series 3, image 84. Clinical correlation. 8. Atelectasis and or consolidation at the dependent portion of the left lower lobe adjacent to the pleural effusion. 9. Diffuse anasarca throughout the visualized subcutaneous soft tissues. 10. 1 centimeter hypoechoic primarily cystic nodule in the left lobe of the thyroid inferiorly. 11. Mild prominence of the ascending thoracic aorta measuring up to 3.1 centimeters. Additional findings as above.
[2017-07-31] MEDS: Dextrose 5%/0.45% NS 1,000 ML IV SCH ×2 (12:30→18:07)
--- NOTE | 2017-07-31 13:29 | RAD ---
Abdomen two views History: Abdominal distention. Comparison: CT scan dated 07/29/2017 Findings: Persistent distension/dilatation of colonic bowel loops which may represent a colonic ileus. Fecal retention in the colon. Multiple dilated loops of small bowel seen within the mid and lower abdomen. Surgical clips in the right upper abdomen. Degenerative changes in the spine and pelvis. Diffuse chronic interstitial lung markings in both lungs with scattered nodular densities seen throughout both lungs. Calcification at the aortic knob. Cardiomegaly. Biapical pleural thickening with upper lobe granulomatous changes. Suggestion of some retained contrast in the urinary bladder. Surgical clips projecting over the midline lower pelvis. Impression: 1. Persistent distension/dilatation of colonic bowel loops which may represent a colonic ileus. Fecal retention in the colon. Multiple dilated loops of small bowel seen within the mid and lower abdomen. Surgical clips in the right upper abdomen. 2. Suggestion of some retained contrast in the urinary bladder. 3. Surgical clips projecting over the midline lower pelvis.
--- NOTE | 2017-07-31 19:38 | CP.PCM.PN ---
Subjective - Date & Time of Evaluation Date of Evaluation: 07/31/17 Time of Evaluation: 19:35 - Subjective Subjective: Patient alert, in no acute distress, with nausea and poor appetite. Hgb stable at 10.0. Will discontinue Ferrous sulfate which may cause nausea. CT scan of the chest reveals multiple nodules bilaterally, especially the RML. Will get pulmonary to evaluate. Objective - Vital Signs/Intake and Output Vital Signs (last 24 hours): Temp Pulse Resp BP Pulse Ox 98.4 F 71 20 121/65 95 07/31/17 15:30 07/31/17 15:30 07/31/17 15:30 07/31/17 15:30 07/31/17 15:30 Intake and Output: 07/31/17 08/01/17 18:59 06:59 Intake Total 520 Balance 520 - Medications Medications: Current Medications Atenolol (Tenormin) 50 mg PO DAILY [facility] Last Admin: 07/31/17 10:21 Dose: 50 mg Enoxaparin Sodium (Lovenox) 40 mg SC DAILY [facility] Last Admin: 07/31/17 10:20 Dose: 40 mg Dextrose/Sodium Chloride (Dextrose 5%/0.45% Ns 1000 Ml) 1,000 mls @ 60 mls/hr IV .[id number] [facility] Last Admin: 07/31/17 18:07 Dose: 60 mls/hr Levothyroxine Sodium (Synthroid) 25 mcg PO DAILY@0630 [facility] Last Admin: 07/31/17 07:19 Dose: 25 mcg Ondansetron HCl (Zofran Inj) 4 mg IVP Q4 PRN PRN Reason: vomitting Last Admin: 07/31/17 18:04 Dose: 4 mg Pantoprazole Sodium (Protonix Ec Tab) 40 mg PO DAILY [facility] Last Admin: 07/31/17 10:21 Dose: 40 mg Potassium Chloride (K-Dur 20 Meq Er Tab) 40 meq PO DAILY [facility] Last Admin: 07/31/17 10:21 Dose: 40 meq Tramadol HCl (Ultram) 25 mg PO TID PRN PRN Reason: Pain, moderate (4-7) - Labs Labs: 07/31/17 06:32 07/29/17 07:18 PT 13.6 SECONDS (9.7-12.2) H 07/27/17 10:30 INR 1.2 07/27/17 10:30 APTT 30 SECONDS (21-34) 07/27/17 10:30 - Constitutional Appears: No Acute Distress, Cachectic, Chronically Ill - Head Exam Head Exam: NORMAL INSPECTION - Eye Exam Eye Exam: Normal appearance - ENT Exam ENT Exam: Normal Exam - Neck Exam Neck Exam: Normal Inspection - Respiratory Exam Respiratory Exam: Rhonchi Additional comments: Rhonchi bilaterally. - Cardiovascular Exam Cardiovascular Exam: REGULAR RHYTHM - GI/Abdominal Exam GI & Abdominal Exam: Soft, Normal Bowel Sounds - Rectal Exam Rectal Exam: Deferred - Extremities Exam Extremities Exam: Normal Inspection - Back Exam Back Exam: NORMAL INSPECTION - Neurological Exam Neurological Exam: Alert, Awake, Oriented x3 - Psychiatric Exam Psychiatric exam: Anxious - Skin Skin Exam: Dry, Normal Color, Warm Assessment and Plan (1) Hypokalemia Status: Resolved (2) Fall Status: Acute (3) Anemia Status: Chronic (4) Malnutrition Status: Chronic
[2017-08-01] MEDS: Dextrose 5%/0.45% NS 1,000 ML IV SCH (05:19)
[2017-08-01] MEDS: Levothyroxine 25 MCG TAB PO SCH (05:40)
[2017-08-01] MEDS: Potassium Chloride 20 mEq ER Tab PO SCH (10:30)
[2017-08-01] MEDS: Pantoprazole 40 mg EC Tab PO SCH (10:30)
[2017-08-01] MEDS: Enoxaparin 40 mg Syringe SC SCH (10:35)
--- NOTE | 2017-08-01 11:39 | CP.PCM.PN ---
Subjective - Date & Time of Evaluation Date of Evaluation: 08/01/17 Time of Evaluation: 11:36 - Subjective Subjective: Covering Dr Gurrola CC: follow up ileus BMs documented. No abdominal pain. Obstructive series demonstrates ilues pattern of SB and colon Objective - Vital Signs/Intake and Output Vital Signs (last 24 hours): Temp Pulse Resp BP Pulse Ox 98.0 F 74 20 126/71 96 08/01/17 07:00 08/01/17 07:00 08/01/17 07:00 08/01/17 07:00 08/01/17 07:00 Intake and Output: 08/01/17 08/01/17 06:59 18:59 Intake Total 480 600 Balance 480 600 - Medications Medications: Current Medications Atenolol (Tenormin) 50 mg PO DAILY [facility] Last Admin: 08/01/17 10:30 Dose: 50 mg Enoxaparin Sodium (Lovenox) 40 mg SC DAILY [facility] Last Admin: 08/01/17 10:35 Dose: 40 mg Levothyroxine Sodium (Synthroid) 25 mcg PO DAILY@0630 [facility] Last Admin: 08/01/17 05:40 Dose: 25 mcg Ondansetron HCl (Zofran Inj) 4 mg IVP Q4 PRN PRN Reason: vomitting Last Admin: 07/31/17 18:04 Dose: 4 mg Pantoprazole Sodium (Protonix Ec Tab) 40 mg PO DAILY [facility] Last Admin: 08/01/17 10:30 Dose: 40 mg Potassium Chloride (K-Dur 20 Meq Er Tab) 40 meq PO DAILY [facility] Last Admin: 08/01/17 10:30 Dose: 40 meq Tramadol HCl (Ultram) 25 mg PO TID PRN PRN Reason: Pain, moderate (4-7) - Labs Labs: 07/31/17 06:32 07/29/17 07:18 PT 13.6 SECONDS (9.7-12.2) H 07/27/17 10:30 INR 1.2 07/27/17 10:30 APTT 30 SECONDS (21-34) 07/27/17 10:30 - Constitutional Appears: No Acute Distress - Head Exam Head Exam: NORMOCEPHALIC - ENT Exam ENT Exam: Normal Exam - Respiratory Exam Respiratory Exam: NORMAL BREATHING PATTERN - Cardiovascular Exam Cardiovascular Exam: REGULAR RHYTHM - GI/Abdominal Exam GI & Abdominal Exam: Distended, Soft, Normal Bowel Sounds (Tympanic but soft and nontender) Assessment and Plan (1) Abdominal distention Assessment & Plan: Ileus Conservative management rectal tube PRN. Consider Amitiza Status: Acute (2) Anemia Assessment & Plan: Chronic, stable. Stool OB negative Status: Chronic
--- NOTE | 2017-08-01 17:51 | CP.PCM.CON ---
History of Present Illness - History of Present Illness History of Present Illness: Reason for consultation: Lung nodules 87-year-old female was admitted with right hip pain after she fell at home. was found to have a comminuted fracture of the right inferior pubic ramus. CAT scan of the chest showed multiple lung nodules. Patient denies cough, denies fever or chills. Patient has had nausea and vomiting, but denies having abdominal pain. She denies having diarrhea, constipation or rectal bleeding at present. Review of Systems - Review of Systems All systems: reviewed and no additional remarkable complaints except (Nausea and vomiting) Past Patient History - Past Medical History & Family History Past Medical History?: Yes - Past Social History Smoking Status: Never Smoked Alcohol: None Drugs: Denies Home Situation {Lives}: Alone - CARDIAC Hx Hypertension: Yes - PULMONARY Hx Respiratory Disorders: No - NEUROLOGICAL Hx Neurological Disorder: No - HEENT Hx HEENT Problems: No - RENAL Hx Chronic Kidney Disease: No - ENDOCRINE/METABOLIC Hx Endocrine Disorders: Yes Hx Hypothyroidism: Yes - HEMATOLOGICAL/ONCOLOGICAL Hx Blood Disorders: No - INTEGUMENTARY Hx Dermatological Problems: No - MUSCULOSKELETAL/RHEUMATOLOGICAL Hx Musculoskeletal Disorders: Yes Hx Falls: Yes - GASTROINTESTINAL Hx Gastrointestinal Disorders: Yes Hx Diarrhea: Yes (FEW MONTHS) - GENITOURINARY/GYNECOLOGICAL Hx Genitourinary Disorders: No - PSYCHIATRIC Hx Substance Use: No - SURGICAL HISTORY Hx Surgeries: No - ANESTHESIA Hx Anesthesia: No Hx Anesthesia Reactions: No Meds Allergies/Adverse Reactions: Allergies Allergy/AdvReac Type Severity Reaction Status Date / Time No Known Allergies Allergy Verified 07/27/17 08:48 - Medications Medications: Current Medications Atenolol (Tenormin) 50 mg PO DAILY [facility] Last Admin: 08/01/17 10:30 Dose: 50 mg Enoxaparin Sodium (Lovenox) 40 mg SC DAILY [facility] Last Admin: 08/01/17 10:35 Dose: 40 mg Levothyroxine Sodium (Synthroid) 25 mcg PO DAILY@0630 [facility] Last Admin: 08/01/17 05:40 Dose: 25 mcg Ondansetron HCl (Zofran Inj) 4 mg IVP Q4 PRN PRN Reason: vomitting Last Admin: 07/31/17 18:04 Dose: 4 mg Pantoprazole Sodium (Protonix Ec Tab) 40 mg PO DAILY [facility] Last Admin: 08/01/17 10:30 Dose: 40 mg Potassium Chloride (K-Dur 20 Meq Er Tab) 40 meq PO DAILY [facility] Last Admin: 08/01/17 10:30 Dose: 40 meq Tramadol HCl (Ultram) 25 mg PO TID PRN PRN Reason: Pain, moderate (4-7) Physical Exam - Constitutional Appears: No Acute Distress - Head Exam Head Exam: ATRAUMATIC, NORMOCEPHALIC - ENT Exam ENT Exam: Mucous Membranes Moist - Neck Exam Neck exam: Positive for: Normal Inspection - Respiratory Exam Respiratory Exam: Decreased Breath Sounds - Cardiovascular Exam Cardiovascular Exam: REGULAR RHYTHM - GI/Abdominal Exam GI & Abdominal Exam: Normal Bowel Sounds, Soft - Extremities Exam Extremities exam: Positive for: normal inspection Results - Vital Signs Recent Vital Signs: Last Vital Signs Temp 98.0 F 08/01/17 07:00 Pulse 74 08/01/17 07:00 Resp 20 08/01/17 07:00 BP 126/71 08/01/17 07:00 Pulse Ox 96 08/01/17 07:00 - Labs Result Diagrams: 07/31/17 06:32 07/29/17 07:18 Assessment & Plan (1) Lung nodules Status: Acute Comment: CAT scan of the chest consistent with multiple lung nodules, patient has no history of smoking and given the size of the nodules, follow-up CAT scan in 6 months
[2017-08-02] MEDS: Levothyroxine 25 MCG TAB PO SCH (05:40)
[2017-08-02] MEDS ORDERED: Lactated Ringer's 1,000 ML IV ONE (08:15)
[2017-08-02] MEDS ORDERED: Etomidate 20 mg/10ml Inj IV ONE (08:19)
[2017-08-02] MEDS ORDERED: Lactated Ringer's 500 ML IV SCH (09:45)
[2017-08-02] MEDS: Enoxaparin 40 mg Syringe SC SCH (09:59)
[2017-08-02] MEDS: Pantoprazole 40 mg EC Tab PO SCH (09:59)
[2017-08-02] MEDS: Potassium Chloride 20 mEq ER Tab PO SCH (09:59)
--- NOTE | 2017-08-02 20:27 | CP.PCM.PN ---
Subjective - Date & Time of Evaluation Date of Evaluation: 08/02/17 Time of Evaluation: 20:24 - Subjective Subjective: Patient says she is tired and refuses to swallow anything. Swallow barium could not be performed because of this reasaon. She had an EGD this AM which revealed only gastritis. Will get a psychiatrric consultation with Dr Tellez for possible depression. Objective - Vital Signs/Intake and Output Vital Signs (last 24 hours): Temp Pulse Resp BP Pulse Ox 97.8 F 77 20 119/72 99 08/02/17 15:00 08/02/17 15:00 08/02/17 15:00 08/02/17 15:00 08/02/17 15:00 Intake and Output: 08/02/17 08/03/17 18:59 06:59 Intake Total 100 Output Total 2 Balance 98 - Medications Medications: Current Medications Atenolol (Tenormin) 50 mg PO DAILY [facility] Last Admin: 08/02/17 09:59 Dose: 50 mg Enoxaparin Sodium (Lovenox) 40 mg SC DAILY [facility] Last Admin: 08/02/17 09:59 Dose: 40 mg Lactated Ringer's (Lactated Ringer's 500ml) 500 mls @ 75 mls/hr IV .[id number] [facility] Last Admin: 08/02/17 13:13 Dose: 75 mls/hr Levothyroxine Sodium (Synthroid) 25 mcg PO DAILY@0630 [facility] Last Admin: 08/02/17 05:40 Dose: Not Given Ondansetron HCl (Zofran Inj) 4 mg IVP Q4 PRN PRN Reason: vomitting Last Admin: 07/31/17 18:04 Dose: 4 mg Pantoprazole Sodium (Protonix Ec Tab) 40 mg PO DAILY [facility] Last Admin: 08/02/17 09:59 Dose: 40 mg Potassium Chloride (K-Dur 20 Meq Er Tab) 40 meq PO DAILY [facility] Last Admin: 08/02/17 09:59 Dose: 40 meq Tramadol HCl (Ultram) 25 mg PO TID PRN PRN Reason: Pain, moderate (4-7) - Labs Labs: 07/31/17 06:32 07/29/17 07:18 PT 13.6 SECONDS (9.7-12.2) H 07/27/17 10:30 INR 1.2 07/27/17 10:30 APTT 30 SECONDS (21-34) 07/27/17 10:30 - Constitutional Appears: No Acute Distress, Cachectic, Chronically Ill - Head Exam Head Exam: NORMAL INSPECTION - Eye Exam Eye Exam: Normal appearance - ENT Exam ENT Exam: Normal Exam - Neck Exam Neck Exam: Normal Inspection - Respiratory Exam Respiratory Exam: Clear to Ausculation Bilateral - Cardiovascular Exam Cardiovascular Exam: REGULAR RHYTHM - GI/Abdominal Exam GI & Abdominal Exam: Soft, Normal Bowel Sounds - Rectal Exam Rectal Exam: Deferred - Exam Exam: NORMAL INSPECTION - Extremities Exam Extremities Exam: Normal Inspection - Neurological Exam Neurological Exam: Alert, Awake, Oriented x3 - Psychiatric Exam Psychiatric exam: Depressed - Skin Skin Exam: Dry, Intact, Normal Color, Warm Assessment and Plan (1) Hypokalemia Status: Resolved (2) Fall Status: Acute (3) Anemia Status: Chronic (4) Malnutrition Assessment & Plan: Patient has poor appetite, refuses to eat. Will get a psych eval. Status: Chronic
[2017-08-02] MEDS: Dextrose 5%/0.45% NS 1,000 ML IV SCH (20:32)
[2017-08-03] MEDS: Levothyroxine 25 MCG TAB PO SCH (05:57)
[2017-08-03 06:51] LABS: BASO % 0.2 % (0.0-2.0); EOS % 0.1 % (0.0-4.0); HEMATOCRIT 28.1 % (34.0-47.0); LYMPH % 26.3 % (20.0-40.0); MEAN CELL VOLUME 92.4 fL (81.0-99.0); MEAN CORPUSCULAR HEMOGLOBIN 30.2 pg (27.0-31.0); MEAN CORPUSCULAR HGB CONC 32.7 g/dL (33.0-37.0); MEAN PLATELET VOLUME 6.7 fL (7.2-11.7); MONO # 0.3 K/uL (0.0-0.8); MONO % 7.1 % (0.0-10.0); WHITE BLOOD COUNT 3.9 K/uL (4.8-10.8)
[2017-08-03 07:13] LABS: ALKALINE PHOSPHATASE 82 U/L (38-126); ALT/SGPT 31 U/L (9-52); AST/SGOT 23 U/L (14-36); BILIRUBIN,TOTAL 1.2 mg/dL (0.2-1.3); BLOOD UREA NITROGEN 22 mg/dL (7-17); CALCIUM 7.4 mg/dl (8.6-10.4); CARBON DIOXIDE 23 mmol/L (22-30); CHLORIDE 101 mmol/L (98-107); GFR AFRICAN-AMERICAN > 60; GLUCOSE,RANDOM 77 mg/dL (65-105); SODIUM 131 mmol/L (132-148); TOTAL PROTEIN 4.3 g/dL (6.3-8.3)
[2017-08-03] MEDS: Pantoprazole 40 mg EC Tab PO SCH (10:09)
[2017-08-03] MEDS: Potassium Chloride 20 mEq ER Tab PO SCH (10:09)
[2017-08-03] MEDS: Enoxaparin 40 mg Syringe SC SCH (10:09)
--- NOTE | 2017-08-03 10:46 | CP.PCM.PN ---
Subjective - Date & Time of Evaluation Date of Evaluation: 08/03/17 Time of Evaluation: 10:37 - Subjective Subjective: Patient tried her hearing aid today and seems in better spirits. She still refuses to eat. She denies having nausea and vomiting. Nurses report no bowel movements today. Objective - Vital Signs/Intake and Output Vital Signs (last 24 hours): Temp Pulse Resp BP Pulse Ox 98.4 F 72 20 105/60 98 08/03/17 08:25 08/03/17 08:25 08/03/17 08:25 08/03/17 08:25 08/03/17 08:25 Intake and Output: 08/03/17 08/03/17 06:59 18:59 Intake Total 600 Output Total 1 Balance 599 - Medications Medications: Current Medications Atenolol (Tenormin) 50 mg PO DAILY [facility] Last Admin: 08/03/17 10:09 Dose: 50 mg Dronabinol (Marinol) 2.5 mg PO DAILY [facility] Enoxaparin Sodium (Lovenox) 40 mg SC DAILY [facility] Last Admin: 08/03/17 10:09 Dose: 40 mg Dextrose/Sodium Chloride (Dextrose 5%/0.45% Ns 1000 Ml) 1,000 mls @ 60 mls/hr IV .[id number] [facility] Last Admin: 08/02/17 20:32 Dose: 60 mls/hr Levothyroxine Sodium (Synthroid) 25 mcg PO DAILY@0630 [facility] Last Admin: 08/03/17 05:57 Dose: 25 mcg Mirtazapine (Remeron) 7.5 mg PO HS [facility] Ondansetron HCl (Zofran Inj) 4 mg IVP Q4 PRN PRN Reason: vomitting Last Admin: 07/31/17 18:04 Dose: 4 mg Pantoprazole Sodium (Protonix Ec Tab) 40 mg PO DAILY [facility] Last Admin: 08/03/17 10:09 Dose: 40 mg Potassium Chloride (K-Dur 20 Meq Er Tab) 40 meq PO DAILY [facility] Last Admin: 08/03/17 10:09 Dose: 40 meq - Labs Labs: 08/03/17 06:36 08/03/17 06:36 PT 13.6 SECONDS (9.7-12.2) H 07/27/17 10:30 INR 1.2 07/27/17 10:30 APTT 30 SECONDS (21-34) 07/27/17 10:30 - Constitutional Appears: Cachectic - Head Exam Head Exam: ATRAUMATIC, NORMOCEPHALIC - Eye Exam Eye Exam: EOMI Pupil Exam: NORMAL ACCOMODATION - Neck Exam Neck Exam: absent: Lymphadenopathy, Thyromegaly - Respiratory Exam Respiratory Exam: NORMAL BREATHING PATTERN. absent: Rales, Rhonchi, Wheezes - Cardiovascular Exam Cardiovascular Exam: REGULAR RHYTHM, +S1, +S2. absent: Gallop, Rubs, Murmur - GI/Abdominal Exam GI & Abdominal Exam: Distended, Soft, Normal Bowel Sounds. absent: Tenderness, Organomegaly Additional comments: Abdomen is slightly less distended - Rectal Exam Rectal Exam: Deferred - Extremities Exam Extremities Exam: absent: Pedal Edema Assessment and Plan (1) Abdominal distention Assessment & Plan: Patient has not had nausea or vomiting today, but is still not eating. The abdomen seems less distended. EGD was suggestive of gastroparesis, but NM feels that the patient cannot cooperate with a Gastric Emptying Study. Patient also will have difficulty cooperating with oral prep for colonoscopy. It may be possible to perform sigmoidoscopy after tap water enema. Status: Acute
[2017-08-03 11:31] LABS: THYROID STIMULATING HORMONE 2.55 mIU/L (0.46-4.68)
--- NOTE | 2017-08-03 18:54 | CP.PCM.PN ---
Subjective - Date & Time of Evaluation Date of Evaluation: 08/03/17 Time of Evaluation: 18:45 - Subjective Subjective: Patient was examined by Dr Tellez. Started on Remeron and Marinol. Patient is more alert and talkative today. Still with a poor appetite. Scheduled for a sigmoidoscopy in AM by Dr. Gurrola. Objective - Vital Signs/Intake and Output Vital Signs (last 24 hours): Temp Pulse Resp BP Pulse Ox 97.7 F 82 18 114/66 96 08/03/17 15:10 08/03/17 15:10 08/03/17 15:10 08/03/17 15:10 08/03/17 15:10 Intake and Output: 08/03/17 08/03/17 06:59 18:59 Intake Total 1080 Output Total 1 Balance 1079 - Medications Medications: Current Medications Atenolol (Tenormin) 50 mg PO DAILY [facility] Last Admin: 08/03/17 10:09 Dose: 50 mg Dronabinol (Marinol) 2.5 mg PO DAILY [facility] Enoxaparin Sodium (Lovenox) 40 mg SC DAILY [facility] Last Admin: 08/03/17 10:09 Dose: 40 mg Dextrose/Sodium Chloride (Dextrose 5%/0.45% Ns 1000 Ml) 1,000 mls @ 60 mls/hr IV .[id number] [facility] Last Admin: 08/02/17 20:32 Dose: 60 mls/hr Levothyroxine Sodium (Synthroid) 25 mcg PO DAILY@0630 [facility] Last Admin: 08/03/17 05:57 Dose: 25 mcg Mirtazapine (Remeron) 7.5 mg PO HS [facility] Ondansetron HCl (Zofran Inj) 4 mg IVP Q4 PRN PRN Reason: vomitting Last Admin: 07/31/17 18:04 Dose: 4 mg Pantoprazole Sodium (Protonix Ec Tab) 40 mg PO DAILY [facility] Last Admin: 08/03/17 10:09 Dose: 40 mg Potassium Chloride (K-Dur 20 Meq Er Tab) 40 meq PO DAILY [facility] Last Admin: 08/03/17 10:09 Dose: 40 meq - Labs Labs: 08/03/17 06:36 08/03/17 06:36 PT 13.6 SECONDS (9.7-12.2) H 11/14/17 10:30 INR 1.2 07/27/17 10:30 APTT 30 SECONDS (21-34) 07/27/17 10:30 - Constitutional Appears: Cachectic, Chronically Ill - Head Exam Head Exam: NORMAL INSPECTION - Eye Exam Eye Exam: Normal appearance - ENT Exam ENT Exam: Normal Exam - Neck Exam Neck Exam: Normal Inspection - Respiratory Exam Respiratory Exam: Clear to Ausculation Bilateral, NORMAL BREATHING PATTERN - Cardiovascular Exam Cardiovascular Exam: REGULAR RHYTHM - GI/Abdominal Exam GI & Abdominal Exam: Soft, Normal Bowel Sounds - Rectal Exam Rectal Exam: Deferred - Extremities Exam Extremities Exam: Normal Inspection - Neurological Exam Neurological Exam: Alert, Awake, Oriented x3 - Psychiatric Exam Psychiatric exam: Depressed - Skin Skin Exam: Dry, Intact, Normal Color, Warm Assessment and Plan (1) Hypokalemia Status: Resolved (2) Fall Status: Resolved (3) Anemia Status: Chronic (4) Malnutrition Status: Chronic (5) Fracture of right inferior pubic ramus Assessment & Plan: The fracture is non-displaced. Patient has no complaint of pubic pain. To continue PT. Status: Acute
[2017-08-03] MEDS: Dextrose 5%/0.45% NS 1,000 ML IV SCH (22:38)
[2017-08-04] MEDS: Levothyroxine 25 MCG TAB PO SCH (05:50)
[2017-08-04] MEDS: Dextrose 5%/0.45% NS 1,000 ML IV SCH (05:53)
--- NOTE | 2017-08-04 07:30 | CON ---
PSYCHIATRIC CONSULTATION DATE: NOTE: The patient is a poor historian and the patient is hard of hearing. CHIEF COMPLAINT AND REASON FOR CONSULTATION: The patient was referred by Dr. Young as the patient is refusing to eat, may be depressed. The patient has periods of confusion. HISTORY OF PRESENT ILLNESS: This is a case of an 87-year-old female who lives alone. The patient was admitted here after she had a fall, hit her right hip on the floor. The patient did not pass out; however, the patient had a right hip x-ray that did not show any fracture. She had a CAT scan of the head that showed nonspecific white matter changes, but brain atrophy. The patient was referred as this patient has been refusing to eat and stating that she is not hungry and according to the chart, the patient has been losing weight. She lives alone and has been noted to have a decrease in her ability to care for herself. The patient does not have any homemaker. She lives by herself. The patient noted to be having periods of confusion and states that she has no appetite. CAT scan of the chest showed multiple nodules. The patient also has been followed by GI. The patient recently had an endoscopy done which showed atrophic gastritis and hiatal hernia, but the patient is still refusing to eat and referred for possible depression. PAST PSYCHIATRIC HISTORY: Denies any. PAST MEDICAL HISTORY: History of recent fall. The patient has a history of hypertension, history of thyroid problems. The patient has hypothyroidism. ALLERGIES: THE PATIENT HAS NO ALLERGIES. DRUG AND ALCOHOL HISTORY: Denies any. PSYCHOSOCIAL HISTORY: The patient lives alone. She has a son who is helping her. LIST OF MEDICATIONS: This patient is on Lovenox, Protonix, Synthroid, Tenormin, and Zofran. PHYSICAL EXAMINATION VITAL SIGNS: Temperature is 98.4, pulse rate 70, blood pressure 105/60, respirations 20 and oxygen saturation is about 98%. The patient is about 5 feet 2 inches and weighs approximately 80 pounds. LABORATORY DATA: On review of her labs, the patient's WBC is 3.9, H and H of 9.2/28.1. Creatinine is 0.7. Liver function tests are within normal limits. The carcinoembryonic antigen is 5.6, elevated. CA-125 is 194, which is high. Folate is 11.2. B12 is 288, which is on the low side. The TSH 3rd generation is still pending. The patient is C. difficile antibody negative. REVIEW OF SYSTEMS GENERAL: The patient is alert, verbal, but hard of hearing, seen in her room, appears very cachectic. She said she has no appetitive. The patient also is hard of hearing. SKIN: No diaphoresis. HEENT: No headache or dizziness. NECK: Supple. RESPIRATORY: No dyspnea. CARDIOVASCULAR: No chest pain. GASTROINTESTINAL: Reports no appetite. She states she does not feel like eating. No nausea. No vomiting. EXTREMITIES: Gait is very unsteady. MUSCULOSKELETAL: Feels weak. NEUROLOGIC: Alert with periods of confusion. GENITOURINARY: No dysuria. MENTAL STATUS EXAMINATION: Cachectic-looking female, who looks chronically ill, oriented to place and person, not to time and date. Affect is reactive. Speech is spontaneous. Mood seems to be dysphoric and depressed. Thought process is confused. Thought content, no overt psychosis, no suicidal or homicidal ideations. Attention and memory seems to be limited. Insight and judgment limited. Impulse control is fair at this time. IMPRESSION: Depressive disorder, not otherwise specified; to consider also senile onset dementia, mood disorder, consider failure to thrive- adult.type PLAN AND RECOMMENDATIONS: The patient is seen and meds reviewed. We will start the patient with Remeron 7.5 mg at bedtime for depression as well as Marinol 2.5 daily. Hopefully, the patient will eat. According to the nurse, the patient will be going more workup with her pulmonary findings. The patient also has a low B12. She may benefit from B12 supplements as the B12 is only 288. Also, EGD shows atrophic gastritis. The patient may benefit from B12 supplements if it is okay and then also the patient is very cachectic and very frail, refusing to eat. The patient's is currently DNR and DNI., May consider palliative care measures for this patient. For now, we will start her with Remeron 7.5 mg at bedtime and then the Marinol 2.5 daily to improve her appetite. Thank you for the consult. Chin Kemp MD [facility] # [id number] [place]
[2017-08-04] MEDS: Potassium Chloride 20 mEq ER Tab PO SCH (09:07)
[2017-08-04] MEDS: Pantoprazole 40 mg EC Tab PO SCH (09:08)
[2017-08-04] MEDS: Enoxaparin 40 mg Syringe SC SCH (09:08)
--- NOTE | 2017-08-04 10:06 | CP.PCM.PN ---
Subjective - Date & Time of Evaluation Date of Evaluation: 08/04/17 Time of Evaluation: 10:04 - Subjective Subjective: Patient has no complaint of SOB, has no pain. Scheduled for a sigmoidoscopy today. Walking with assistance. Objective - Vital Signs/Intake and Output Vital Signs (last 24 hours): Temp Pulse Resp BP Pulse Ox 97.9 F 111 H 20 117/75 95 08/04/17 07:39 08/04/17 07:39 08/04/17 07:39 08/04/17 07:39 08/04/17 07:39 Intake and Output: 08/04/17 08/04/17 06:59 18:59 Intake Total 500 480 Output Total 4 Balance 496 480 - Medications Medications: Current Medications Atenolol (Tenormin) 50 mg PO DAILY [facility] Last Admin: 08/04/17 09:08 Dose: 50 mg Dronabinol (Marinol) 2.5 mg PO DAILY [facility] Last Admin: 08/03/17 12:00 Dose: 2.5 mg Enoxaparin Sodium (Lovenox) 40 mg SC DAILY [facility] Last Admin: 08/04/17 09:08 Dose: 40 mg Dextrose/Sodium Chloride (Dextrose 5%/0.45% Ns 1000 Ml) 1,000 mls @ 60 mls/hr IV .[id number] [facility] Last Admin: 08/04/17 05:53 Dose: Not Given Levothyroxine Sodium (Synthroid) 25 mcg PO DAILY@0630 [facility] Last Admin: 08/04/17 05:50 Dose: 25 mcg Mirtazapine (Remeron) 7.5 mg PO HS [facility] Last Admin: 08/03/17 22:39 Dose: 7.5 mg Ondansetron HCl (Zofran Inj) 4 mg IVP Q4 PRN PRN Reason: vomitting Last Admin: 08/04/17 09:09 Dose: 4 mg Pantoprazole Sodium (Protonix Ec Tab) 40 mg PO DAILY [facility] Last Admin: 08/04/17 09:08 Dose: 40 mg Potassium Chloride (K-Dur 20 Meq Er Tab) 40 meq PO DAILY [facility] Last Admin: 08/04/17 09:07 Dose: 40 meq - Labs Labs: 08/03/17 06:36 08/03/17 06:36 PT 13.6 SECONDS (9.7-12.2) H 07/27/17 10:30 INR 1.2 07/27/17 10:30 APTT 30 SECONDS (21-34) 07/27/17 10:30 - Constitutional Appears: No Acute Distress, Cachectic, Chronically Ill - Head Exam Head Exam: NORMAL INSPECTION - Eye Exam Eye Exam: Normal appearance - ENT Exam ENT Exam: Normal Exam - Respiratory Exam Respiratory Exam: Rhonchi - Cardiovascular Exam Cardiovascular Exam: REGULAR RHYTHM - GI/Abdominal Exam GI & Abdominal Exam: Soft, Normal Bowel Sounds - Rectal Exam Rectal Exam: Deferred - Back Exam Back Exam: NORMAL INSPECTION - Neurological Exam Neurological Exam: Alert, Awake, Oriented x3 - Psychiatric Exam Psychiatric exam: Anxious - Skin Skin Exam: Dry, Intact, Normal Color, Warm Assessment and Plan (1) Hypokalemia Status: Resolved (2) Fall Status: Resolved (3) Anemia Assessment & Plan: For a sigmoidoscopy today. Status: Chronic (4) Malnutrition Status: Chronic (5) Fracture of right inferior pubic ramus Status: Acute
[2017-08-04] MEDS ORDERED: Midazolam 2 MG/2 ML VIAL ONE (14:04)
[2017-08-04] MEDS ORDERED: Etomidate 20 mg/10ml Inj IV ONE (14:33)
[2017-08-04 16:14] LABS: PARIETAL CELL AB SCREEN Negative (Negative)
[2017-08-05] MEDS: Dextrose 5%/0.45% NS 1,000 ML IV SCH (01:35)
[2017-08-05] MEDS: Levothyroxine 25 MCG TAB PO SCH (05:45)
[2017-08-05 07:21] LABS: EOS % 0.3 % (0.0-4.0); HEMATOCRIT 28.6 % (34.0-47.0); LYMPH # 0.7 K/uL (1.0-4.3); LYMPH % 20.5 % (20.0-40.0); MEAN CELL VOLUME 92.7 fL (81.0-99.0); MEAN CORPUSCULAR HEMOGLOBIN 30.9 pg (27.0-31.0); MEAN CORPUSCULAR HGB CONC 33.3 g/dL (33.0-37.0); MEAN PLATELET VOLUME 6.9 fL (7.2-11.7); MONO # 0.2 K/uL (0.0-0.8); MONO % 7.4 % (0.0-10.0); RED CELL DISTRIBUTION WIDTH 15.9 % (11.5-14.5); WHITE BLOOD COUNT 3.4 K/uL (4.8-10.8)
[2017-08-05 07:56] LABS: ALKALINE PHOSPHATASE 81 U/L (38-126); ALT/SGPT 31 U/L (9-52); AST/SGOT 18 U/L (14-36); BILIRUBIN,TOTAL 0.9 mg/dL (0.2-1.3); BLOOD UREA NITROGEN 20 mg/dL (7-17); CARBON DIOXIDE 23 mmol/L (22-30); CHLORIDE 99 mmol/L (98-107); GFR AFRICAN-AMERICAN > 60; GLUCOSE,RANDOM 73 mg/dL (65-105); POTASSIUM 3.9 mmol/L (3.6-5.2); SODIUM 127 mmol/L (132-148); TOTAL PROTEIN 4.2 g/dL (6.3-8.3)
[2017-08-05] MEDS: Potassium Chloride 20 mEq ER Tab PO SCH (10:30)
[2017-08-05] MEDS: Enoxaparin 40 mg Syringe SC SCH (10:30)
[2017-08-05] MEDS: Pantoprazole 40 mg EC Tab PO SCH (10:31)
--- NOTE | 2017-08-05 11:39 | CP.PCM.PN ---
Subjective - Date & Time of Evaluation Date of Evaluation: 08/05/17 Time of Evaluation: 11:36 - Subjective Subjective: COVERING DR CERNA confused, still with poor po intake. 75% of meal tray not consumed, No N/V per staff Objective - Vital Signs/Intake and Output Vital Signs (last 24 hours): Temp Pulse Resp BP Pulse Ox 97.7 F 75 20 111/67 94 L 08/05/17 07:00 08/05/17 07:00 08/05/17 07:00 08/05/17 07:00 08/05/17 07:00 Intake and Output: 08/05/17 08/05/17 06:59 18:59 Intake Total 480 Balance 480 - Medications Medications: Current Medications Atenolol (Tenormin) 50 mg PO DAILY [facility] Last Admin: 08/05/17 10:31 Dose: 50 mg Dronabinol (Marinol) 2.5 mg PO DAILY [facility] Last Admin: 08/05/17 10:31 Dose: 2.5 mg Enoxaparin Sodium (Lovenox) 40 mg SC DAILY [facility] Last Admin: 08/05/17 10:30 Dose: 40 mg Dextrose/Sodium Chloride (Dextrose 5%/0.45% Ns 1000 Ml) 1,000 mls @ 60 mls/hr IV .[id number] [facility] Last Admin: 08/05/17 01:35 Dose: 60 mls/hr Levothyroxine Sodium (Synthroid) 25 mcg PO DAILY@0630 [facility] Last Admin: 08/05/17 05:45 Dose: 25 mcg Mirtazapine (Remeron) 7.5 mg PO HS [facility] Last Admin: 08/04/17 21:35 Dose: 7.5 mg Ondansetron HCl (Zofran Inj) 4 mg IVP Q4 PRN PRN Reason: vomitting Last Admin: 08/04/17 09:09 Dose: 4 mg Pantoprazole Sodium (Protonix Ec Tab) 40 mg PO DAILY [facility] Last Admin: 08/05/17 10:31 Dose: 40 mg Potassium Chloride (K-Dur 20 Meq Er Tab) 40 meq PO DAILY [facility] Last Admin: 08/05/17 10:30 Dose: 40 meq - Labs Labs: 08/05/17 07:13 08/05/17 07:13 PT 13.6 SECONDS (9.7-12.2) H 07/27/17 10:30 INR 1.2 07/27/17 10:30 APTT 30 SECONDS (21-34) 07/27/17 10:30 - Constitutional Appears: Cachectic - Head Exam Head Exam: ATRAUMATIC, NORMOCEPHALIC - Respiratory Exam Respiratory Exam: NORMAL BREATHING PATTERN - Cardiovascular Exam Cardiovascular Exam: REGULAR RHYTHM - GI/Abdominal Exam GI & Abdominal Exam: Soft, Normal Bowel Sounds. absent: Distended, Tenderness, Mass, Rebound - Rectal Exam Rectal Exam: Deferred - Extremities Exam Extremities Exam: absent: Pedal Edema Assessment and Plan (1) Gastroparesis Assessment & Plan: Encourage po intake. Multiple small meals. Status: Acute (2) Nausea and vomiting Assessment & Plan: appears to have resolved per nursing staff. Patient not a reliable historian. Status: Acute (3) Malnutrition Assessment & Plan: May need alternative means of po intake. Prognosis guarded. Status: Chronic
--- NOTE | 2017-08-05 20:02 | CP.PCM.PN ---
Subjective - Date & Time of Evaluation Date of Evaluation: 08/05/17 Time of Evaluation: 20:00 - Subjective Subjective: Patient is alert, oriented, in no respiratory difficulty. Still with very poor appetite. Refuses NGT or PEG. Sigmoidoscopy did not reveal any tumor suspicious of malignancy. Objective - Vital Signs/Intake and Output Vital Signs (last 24 hours): Temp Pulse Resp BP Pulse Ox 97.6 F 79 18 129/73 94 L 08/05/17 15:28 08/05/17 15:28 08/05/17 15:28 08/05/17 15:28 08/05/17 07:00 - Medications Medications: Current Medications Atenolol (Tenormin) 50 mg PO DAILY [facility] Last Admin: 08/05/17 10:31 Dose: 50 mg Dronabinol (Marinol) 2.5 mg PO DAILY [facility] Last Admin: 08/05/17 10:31 Dose: 2.5 mg Enoxaparin Sodium (Lovenox) 40 mg SC DAILY [facility] Last Admin: 08/05/17 10:30 Dose: 40 mg Dextrose/Sodium Chloride (Dextrose 5%/0.45% Ns 1000 Ml) 1,000 mls @ 60 mls/hr IV .[id number] [facility] Last Admin: 08/05/17 01:35 Dose: 60 mls/hr Levothyroxine Sodium (Synthroid) 25 mcg PO DAILY@0630 [facility] Last Admin: 08/05/17 05:45 Dose: 25 mcg Mirtazapine (Remeron) 7.5 mg PO HS [facility] Last Admin: 08/04/17 21:35 Dose: 7.5 mg Ondansetron HCl (Zofran Inj) 4 mg IVP Q4 PRN PRN Reason: vomitting Last Admin: 08/04/17 09:09 Dose: 4 mg Pantoprazole Sodium (Protonix Ec Tab) 40 mg PO DAILY [facility] Last Admin: 08/05/17 10:31 Dose: 40 mg Potassium Chloride (K-Dur 20 Meq Er Tab) 40 meq PO DAILY [facility] Last Admin: 08/05/17 10:30 Dose: 40 meq - Labs Labs: 08/05/17 07:13 08/05/17 07:13 PT 13.6 SECONDS (9.7-12.2) H 07/27/17 10:30 INR 1.2 07/27/17 10:30 APTT 30 SECONDS (21-34) 07/27/17 10:30 - Constitutional Appears: No Acute Distress, Cachectic, Chronically Ill - Head Exam Head Exam: NORMAL INSPECTION - Eye Exam Eye Exam: Normal appearance - ENT Exam ENT Exam: Normal Exam - Neck Exam Neck Exam: Normal Inspection - Respiratory Exam Respiratory Exam: Clear to Ausculation Bilateral - Cardiovascular Exam Cardiovascular Exam: REGULAR RHYTHM - GI/Abdominal Exam GI & Abdominal Exam: Soft, Normal Bowel Sounds - Rectal Exam Rectal Exam: Deferred - Extremities Exam Extremities Exam: Normal Inspection - Back Exam Back Exam: NORMAL INSPECTION - Neurological Exam Neurological Exam: Alert, Awake, Oriented x3 - Psychiatric Exam Psychiatric exam: Anxious - Skin Skin Exam: Dry, Intact, Normal Color, Warm Assessment and Plan (1) Hypokalemia Status: Resolved (2) Fall Status: Resolved (3) Anemia Status: Chronic (4) Malnutrition Status: Chronic (5) Fracture of right inferior pubic ramus Status: Acute
[2017-08-06] MEDS: Levothyroxine 25 MCG TAB PO SCH (06:38)
--- NOTE | 2017-08-06 06:54 | PN ---
DATE: 08/04/2017 SUBJECTIVE: The patient is seen. The patient is more alert and verbal today, little hyper but still has poor appetite. The patient is scheduled for sigmoidoscopy today. I spoke with the dialysis social worker. Plan was the patient to go to subacute rehab close to his place. Appetite is still poor. The patient also is hard of hearing but refusing to use her hearing aid. PHYSICAL EXAMINATION: VITAL SIGNS: Temperature is 97.9, pulse rate is 111, blood pressure is 117/75, respirations 20, oxygen sat is 95%. LABORATORY DATA: Review of her labs, the patient's TSH is 2.55, within normal limits. The patient was given psych yang Remeron 7.5 mg at bedtime and also given Marinol 2.5 mg daily to improve appetite which she seems to be tolerating better. REVIEW OF SYSTEMS: GENERAL: The patient is more alert, verbal, less confused, seen in her room, seen with staff. She is more cooperative, but still refusing to eat. SKIN: No diaphoresis. HEENT: No headache or dizziness. NECK: Supple. RESPIRATORY: No dyspnea. CARDIOVASCULAR: No chest pain. GASTROINTESTINAL: Still has poor appetite. The patient is followed by GI. No nausea. No vomiting. EXTREMITIES: Gait is unsteady. No tremors. MUSCULOSKELETAL: Feels weak. NEUROLOGIC: Some periods of confusion. Appetite is very poor. MENTAL STATUS EXAMINATION: Elderly female who looks cachectic and chronically ill, oriented to place and person and not to time. The patient is hard of hearing. Speech spontaneous. Affect is reactive. Mood is dysphoric. Thought process confused at times, this maybe compounded because of her hearing problems. Thought content, no overt psychosis. No suicidal or homicidal ideation. She has been complaint with medications intake and care. Attention and memory seems to be limited. Insight and judgment limited. Impulse control is fair at this time. IMPRESSION: Depressive disorder, not otherwise specified; mood disorder; senile dementia, failure to thrive, adult type. PLAN AND RECOMMENDATION: The patient is seen and meds reviewed. The patient is undergoing GI workup. The patient is supposed to go to endoscopy today by Dr. Gurrola. Psych yang, we will keep her on Marinol and Remeron as ordered and previous treatment plan as outlined. The patient for subacute rehab once medically cleared. If the patient's condition continues to deteriorate, the patient may benefit from palliative care. The patient has history of multiple pulmonary nodules noted on CTscan of the chest. The patient will not have any aggressive workup from pulmonary yang. Chin Kemp MD [email or web address]
--- NOTE | 2017-08-06 08:22 | CP.PCM.PN ---
Subjective - Date & Time of Evaluation Date of Evaluation: 08/06/17 Time of Evaluation: 08:19 - Subjective Subjective: Patient is more alert today but remains confused. Objective - Vital Signs/Intake and Output Vital Signs (last 24 hours): Temp Pulse Resp BP Pulse Ox 97.0 F L 74 18 133/54 L 99 08/06/17 08:09 08/06/17 08:09 08/06/17 08:09 08/06/17 08:09 08/06/17 08:09 - Medications Medications: Current Medications Atenolol (Tenormin) 50 mg PO DAILY [facility] Last Admin: 08/05/17 10:31 Dose: 50 mg Dronabinol (Marinol) 2.5 mg PO DAILY [facility] Last Admin: 08/05/17 10:31 Dose: 2.5 mg Enoxaparin Sodium (Lovenox) 40 mg SC DAILY [facility] Last Admin: 08/05/17 10:30 Dose: 40 mg Dextrose/Sodium Chloride (Dextrose 5%/0.45% Ns 1000 Ml) 1,000 mls @ 60 mls/hr IV .[id number] [facility] Last Admin: 08/05/17 01:35 Dose: 60 mls/hr Levothyroxine Sodium (Synthroid) 25 mcg PO DAILY@0630 [facility] Last Admin: 08/06/17 06:38 Dose: 25 mcg Mirtazapine (Remeron) 7.5 mg PO HS [facility] Last Admin: 08/05/17 21:35 Dose: 7.5 mg Ondansetron HCl (Zofran Inj) 4 mg IVP Q4 PRN PRN Reason: vomitting Last Admin: 08/04/17 09:09 Dose: 4 mg Pantoprazole Sodium (Protonix Ec Tab) 40 mg PO DAILY [facility] Last Admin: 08/05/17 10:31 Dose: 40 mg Potassium Chloride (K-Dur 20 Meq Er Tab) 40 meq PO DAILY [facility] Last Admin: 08/05/17 10:30 Dose: 40 meq - Labs Labs: 08/05/17 07:13 08/05/17 07:13 PT 13.6 SECONDS (9.7-12.2) H 07/27/17 10:30 INR 1.2 07/27/17 10:30 APTT 30 SECONDS (21-34) 07/27/17 10:30 - Constitutional Appears: No Acute Distress - Head Exam Head Exam: ATRAUMATIC, NORMOCEPHALIC - Eye Exam Eye Exam: EOMI, PERRL - Neck Exam Neck Exam: absent: Lymphadenopathy, Thyromegaly - Respiratory Exam Respiratory Exam: NORMAL BREATHING PATTERN. absent: Rales, Rhonchi, Wheezes - Cardiovascular Exam Cardiovascular Exam: REGULAR RHYTHM, +S1, +S2. absent: Gallop, Rubs, Murmur - GI/Abdominal Exam GI & Abdominal Exam: Soft, Normal Bowel Sounds. absent: Tenderness, Mass, Organomegaly - Rectal Exam Rectal Exam: Deferred - Extremities Exam Extremities Exam: absent: Calf Tenderness, Pedal Edema Assessment and Plan (1) Abdominal distention Assessment & Plan: Patient is more alert but confused. Abdomen is less distended. Hemoglobin is stable at 9.5. Awaiting biopsy results. Status: Acute
[2017-08-06] MEDS: Pantoprazole 40 mg EC Tab PO SCH (09:43)
[2017-08-06] MEDS: Potassium Chloride 20 mEq ER Tab PO SCH (09:43)
[2017-08-06] MEDS: Enoxaparin 40 mg Syringe SC SCH (09:44)
[2017-08-06] MEDS: Dextrose 5%/0.45% NS 1,000 ML IV SCH (14:33)
--- NOTE | 2017-08-06 14:49 | CP.PCM.CON ---
History of Present Illness - History of Present Illness History of Present Illness: Vascular Surgery- Dr. Lozada 87F presents to [facility] s/p mechanical fall on the right hip. Surgery was consulted for blue toes. Patient is a poor historian with no family members at the bedside at this time to help provide an accurate history. Patient is responsive to verbal and noxious stimuli. Patient currently tolerating current diet. Denies, nausea, vomiting, fevers, chills Review of Systems - Review of Systems All systems: reviewed and no additional remarkable complaints except - Constitutional Constitutional: As Per HPI Past Patient History - Past Medical History & Family History Past Medical History?: Yes - Past Social History Smoking Status: Never Smoked Alcohol: None Drugs: Denies Home Situation {Lives}: Alone - CARDIAC Hx Hypertension: Yes - PULMONARY Hx Respiratory Disorders: No - NEUROLOGICAL Hx Neurological Disorder: No - HEENT Hx HEENT Problems: No - RENAL Hx Chronic Kidney Disease: No - ENDOCRINE/METABOLIC Hx Endocrine Disorders: Yes Hx Hypothyroidism: Yes - HEMATOLOGICAL/ONCOLOGICAL Hx Blood Disorders: No - INTEGUMENTARY Hx Dermatological Problems: No - MUSCULOSKELETAL/RHEUMATOLOGICAL Hx Musculoskeletal Disorders: Yes Hx Falls: Yes - GASTROINTESTINAL Hx Gastrointestinal Disorders: Yes Hx Diarrhea: Yes (FEW MONTHS) - GENITOURINARY/GYNECOLOGICAL Hx Genitourinary Disorders: No - PSYCHIATRIC Hx Substance Use: No - SURGICAL HISTORY Hx Surgeries: No - ANESTHESIA Hx Anesthesia: No Hx Anesthesia Reactions: No Meds Allergies/Adverse Reactions: Allergies Allergy/AdvReac Type Severity Reaction Status Date / Time No Known Allergies Allergy Verified 07/27/17 08:48 - Medications Medications: Current Medications Atenolol (Tenormin) 50 mg PO DAILY [facility] Last Admin: 08/06/17 09:43 Dose: 50 mg Dronabinol (Marinol) 2.5 mg PO DAILY [facility] Last Admin: 08/06/17 10:01 Dose: 2.5 mg Enoxaparin Sodium (Lovenox) 40 mg SC DAILY [facility] Last Admin: 08/06/17 09:44 Dose: 40 mg Dextrose/Sodium Chloride (Dextrose 5%/0.45% Ns 1000 Ml) 1,000 mls @ 60 mls/hr IV .[id number] [facility] Last Admin: 08/06/17 14:33 Dose: 60 mls/hr Levothyroxine Sodium (Synthroid) 25 mcg PO DAILY@0630 [facility] Last Admin: 08/06/17 06:38 Dose: 25 mcg Mirtazapine (Remeron) 7.5 mg PO HS [facility] Last Admin: 08/05/17 21:35 Dose: 7.5 mg Ondansetron HCl (Zofran Inj) 4 mg IVP Q4 PRN PRN Reason: vomitting Last Admin: 08/04/17 09:09 Dose: 4 mg Pantoprazole Sodium (Protonix Ec Tab) 40 mg PO DAILY [facility] Last Admin: 08/06/17 09:43 Dose: 40 mg Potassium Chloride (K-Dur 20 Meq Er Tab) 40 meq PO DAILY [facility] Last Admin: 08/06/17 09:43 Dose: 40 meq Physical Exam - Constitutional Appears: Non-toxic, No Acute Distress, Confused, Chronically Ill - Head Exam Head Exam: ATRAUMATIC - Eye Exam Eye Exam: absent: Scleral icterus - ENT Exam ENT Exam: Mucous Membranes Moist - Respiratory Exam Respiratory Exam: NORMAL BREATHING PATTERN. absent: Accessory Muscle Use, Chest Wall Tenderness, Respiratory Distress - Cardiovascular Exam Cardiovascular Exam: +S1, +S2. absent: Bradycardia, Tachycardia - GI/Abdominal Exam GI & Abdominal Exam: Soft. absent: Distended, Firm, Guarding, Rebound, Rigid, Tenderness - Extremities Exam Additional comments: Toes slightly blue, w/ viable tissue. bilateral palpable Popliteal pulses +2 - Neurological Exam Neurological exam: Altered - Skin Skin Exam: Dry, Intact Results - Vital Signs Recent Vital Signs: Last Vital Signs Temp 97.0 F L 08/06/17 08:09 Pulse 74 08/06/17 08:09 Resp 18 08/06/17 08:09 BP 133/54 L 08/06/17 08:09 Pulse Ox 99 08/06/17 08:09 - Labs Result Diagrams: 08/05/17 07:13 08/05/17 07:13 Assessment & Plan - Assessment and Plan (Free Text) Assessment: 87F w/ altered mental status r/o peripheral vascular disease Plan: - bilateral lower extremity Ultrasound - no acute surgical intervention at this time as patient is a poor candidate - medical management per primary team - discussed with Dr. Lozada surgical attending Khris Jackson PGY1
--- NOTE | 2017-08-06 18:00 | PN ---
FOLLOWUP PROGRESS NOTE DATE: 08/06/2017 SUBJECTIVE: The patient is seen. The patient is one-to-one watch. The patient's medical condition seems to be deteriorating. The patient was noted to have cyanosis on her both feet, which seems to be ascending. Her feet are very very cold, but she is not complaining of pain. The patient remains confused and hard of hearing. Discussed with Dr. Young. The patient was referred to Dr. Lozada, but according to Dr. Young, Dr. Lozada does not want to do anything. The patient is very medically ill and has complex medical problems. Advised to refer for palliative care consult and also to call the son, so the son can visit his mother. The patient is currently on Marinol and Remeron. She has not been complaining of any other problems other than being confused and not complaining of pain. PHYSICAL EXAMINATION: VITAL SIGNS: Temperature 97, pulse rate 74, blood pressure 133/54, respirations 18, oxygen sat is 99%. REVIEW OF SYSTEMS: GENERAL: The patient is alert, but still confused, seen in her room, the patient is one-to-one watch. SKIN: No diaphoresis, but the patient has noted to have cyanosis of both feet as well as her feet noted to be very cold and the cyanosis seems to be ascending. HEENT: No headache. No dizziness. NECK: Supple. RESPIRATORY: No dyspnea. CARDIOVASCULAR: No chest pain. GASTROINTESTINAL: The patient continues very poor appetite. The patient is followed by Dr. Gurrola, had a sigmoidoscopy done. As per note of Dr. Gurrola, the patient had the procedure and awaiting biopsy. EXTREMITIES: Gait is unsteady. Both feet are cold and cyanotic. MUSCULOSKELETAL: Feels week. NEUROLOGIC: Alert with periods of confusion. GENITOURINARY: No dysuria. MENTAL STATUS EXAMINATION: Cachectic-looking female, looked chronically ill. Oriented only to person, not to place and time. Mood is dysphoric. Affect is reactive. Speech is spontaneous. Thought process, confused off and on. Thought content, no overt psychosis. Not complaining of pain. No paranoia. No suicidal or homicidal ideation. Attention and memory seem to be limited. Insight and judgment limited. Impulse control is fair at this time. IMPRESSION: Depressive disorder, not otherwise specified as well as dementia as well as to consider superimposed terminal stage delirium, metabolic encephalopathy, hard of hearing. PLAN AND RECOMMENDATIONS: The patient is seen and meds reviewed. Continue present management. We will try to refer for palliative care as the patient is declining medically and the patient is currently DNI and DNR. The patient is deteriorating progressively and may benefit from palliative care. Chin Kemp MD MTDD
[2017-08-06 21:52] LABS: INTRINSIC FACTOR BLOCK AB Negative (Negative)
--- NOTE | 2017-08-06 23:21 | CP.PCM.PN ---
Subjective - Date & Time of Evaluation Date of Evaluation: 08/06/17 Time of Evaluation: 21:00 - Subjective Subjective: Patient awake, in no respiratory distress, but confused. Also has cyanosis of coldness of the toes, left more right. Patient was seen by Dr Mckeon, no surgical indication at the present time. Arterial doppler of the extremities ordered. Also gastric biopsy was positive for Candidiasis and H. Pylori. Objective - Vital Signs/Intake and Output Vital Signs (last 24 hours): Temp Pulse Resp BP Pulse Ox 97 F L 86 18 103/65 100 08/06/17 15:30 08/06/17 15:30 08/06/17 16:04 08/06/17 16:04 08/06/17 16:04 Intake and Output: 08/06/17 08/07/17 18:59 06:59 Intake Total 510 480 Output Total 0 Balance 510 480 - Medications Medications: Current Medications Atenolol (Tenormin) 50 mg PO DAILY [facility] Last Admin: 08/06/17 09:43 Dose: 50 mg Dronabinol (Marinol) 2.5 mg PO DAILY [facility] Last Admin: 08/06/17 10:01 Dose: 2.5 mg Enoxaparin Sodium (Lovenox) 40 mg SC DAILY [facility] Last Admin: 08/06/17 09:44 Dose: 40 mg Dextrose/Sodium Chloride (Dextrose 5%/0.45% Ns 1000 Ml) 1,000 mls @ 60 mls/hr IV .[id number] [facility] Last Admin: 08/06/17 14:33 Dose: 60 mls/hr Levothyroxine Sodium (Synthroid) 25 mcg PO DAILY@0630 [facility] Last Admin: 08/06/17 06:38 Dose: 25 mcg Mirtazapine (Remeron) 7.5 mg PO HS [facility] Last Admin: 08/06/17 21:05 Dose: Not Given Ondansetron HCl (Zofran Inj) 4 mg IVP Q4 PRN PRN Reason: vomitting Last Admin: 08/04/17 09:09 Dose: 4 mg Pantoprazole Sodium (Protonix Ec Tab) 40 mg PO DAILY [facility] Last Admin: 08/06/17 09:43 Dose: 40 mg Potassium Chloride (K-Dur 20 Meq Er Tab) 40 meq PO DAILY [facility] Last Admin: 08/06/17 09:43 Dose: 40 meq - Labs Labs: 08/05/17 07:13 08/05/17 07:13 PT 13.6 SECONDS (9.7-12.2) H 07/27/17 10:30 INR 1.2 07/27/17 10:30 APTT 30 SECONDS (21-34) 07/27/17 10:30 - Constitutional Appears: No Acute Distress, Cachectic, Chronically Ill - Head Exam Head Exam: NORMAL INSPECTION - Eye Exam Eye Exam: Normal appearance - ENT Exam ENT Exam: Normal Exam - Neck Exam Neck Exam: Normal Inspection - Respiratory Exam Respiratory Exam: Clear to Ausculation Bilateral, NORMAL BREATHING PATTERN - Cardiovascular Exam Cardiovascular Exam: REGULAR RHYTHM - GI/Abdominal Exam GI & Abdominal Exam: Soft, Normal Bowel Sounds - Rectal Exam Rectal Exam: Deferred - Extremities Exam Additional comments: Cyanotic and cold left foot more the right foot. - Neurological Exam Neurological Exam: Alert, Awake - Psychiatric Exam Additional comments: Confused. - Skin Skin Exam: Dry, Intact, Normal Color, Warm Assessment and Plan (1) Hypokalemia Status: Resolved (2) Fall Status: Resolved (3) Anemia Status: Chronic (4) Malnutrition Status: Chronic (5) Fracture of right inferior pubic ramus Status: Acute (6) Esophageal candidiasis Assessment & Plan: Needs antifungal meds. Status: Acute (7) Gastritis due to Helicobacter species Assessment & Plan: Needs antibiotherapy. Status: Acute
[2017-08-07] MEDS: Dextrose 5%/0.45% NS 1,000 ML IV SCH ×3 (00:30→21:20)
[2017-08-07] MEDS: Levothyroxine 25 MCG TAB PO SCH (06:29)
[2017-08-07] MEDS: Pantoprazole 40 mg EC Tab PO SCH (10:03)
[2017-08-07] MEDS: Enoxaparin 40 mg Syringe SC SCH (10:03)
[2017-08-07] MEDS: Potassium Chloride 20 mEq ER Tab PO SCH (10:03)
--- NOTE | 2017-08-07 10:11 | CP.PCM.PN ---
Subjective - Date & Time of Evaluation Date of Evaluation: 08/07/17 Time of Evaluation: 07:50 - Subjective Subjective: Vascular Surgery- Dr. Lozada Pt S&E at bedside this AM. no acute events overnight per nursing. Patient has air boots on. palpable popliteal pulses. Objective - Vital Signs/Intake and Output Vital Signs (last 24 hours): Temp Pulse Resp BP Pulse Ox 97.4 F L 62 18 130/70 97 08/07/17 08:38 08/07/17 08:38 08/07/17 08:38 08/07/17 08:38 08/07/17 08:38 Intake and Output: 08/07/17 08/07/17 06:59 18:59 Intake Total 960 Balance 960 - Medications Medications: Current Medications Atenolol (Tenormin) 50 mg PO DAILY [facility] Last Admin: 08/07/17 10:03 Dose: 50 mg Dronabinol (Marinol) 2.5 mg PO DAILY [facility] Last Admin: 08/06/17 10:01 Dose: 2.5 mg Enoxaparin Sodium (Lovenox) 40 mg SC DAILY [facility] Last Admin: 08/07/17 10:03 Dose: 40 mg Dextrose/Sodium Chloride (Dextrose 5%/0.45% Ns 1000 Ml) 1,000 mls @ 60 mls/hr IV .[id number] [facility] Last Admin: 08/07/17 05:53 Dose: 60 mls/hr Levothyroxine Sodium (Synthroid) 25 mcg PO DAILY@0630 [facility] Last Admin: 08/07/17 06:29 Dose: 25 mcg Mirtazapine (Remeron) 7.5 mg PO HS [facility] Last Admin: 08/06/17 21:05 Dose: Not Given Ondansetron HCl (Zofran Inj) 4 mg IVP Q4 PRN PRN Reason: vomitting Last Admin: 08/04/17 09:09 Dose: 4 mg Pantoprazole Sodium (Protonix Ec Tab) 40 mg PO DAILY [facility] Last Admin: 08/07/17 10:03 Dose: 40 mg Potassium Chloride (K-Dur 20 Meq Er Tab) 40 meq PO DAILY [facility] Last Admin: 08/07/17 10:03 Dose: 40 meq - Labs Labs: 08/05/17 07:13 08/05/17 07:13 PT 13.6 SECONDS (9.7-12.2) H 07/27/17 10:30 INR 1.2 07/27/17 10:30 APTT 30 SECONDS (21-34) 07/27/17 10:30 - Constitutional Appears: No Acute Distress, Cachectic, Chronically Ill - Head Exam Head Exam: ATRAUMATIC - Eye Exam Eye Exam: absent: Scleral icterus - ENT Exam ENT Exam: Mucous Membranes Moist - Respiratory Exam Respiratory Exam: NORMAL BREATHING PATTERN. absent: Accessory Muscle Use, Respiratory Distress - Cardiovascular Exam Cardiovascular Exam: +S1, +S2. absent: Bradycardia, Tachycardia - GI/Abdominal Exam GI & Abdominal Exam: Soft. absent: Distended, Firm, Guarding, Tenderness - Extremities Exam Additional comments: toes slightly blue +2 popliteal pulses bilateral - Neurological Exam Neurological Exam: absent: Alert - Skin Skin Exam: Intact Assessment and Plan - Assessment and Plan (Free Text) Assessment: 87F w/ perhipheral vascular disease Plan: - f/u lower extremity US - patient not a good candidate for surgery - pending US, most likely no acute surgical intervention at this time - c/w medical management per primary - d/w Dr. Lozada surgical attending Khris Jackson PGY1
--- NOTE | 2017-08-07 10:54 | CP.PCM.PN ---
Subjective - Date & Time of Evaluation Date of Evaluation: 08/07/17 Time of Evaluation: 10:52 - Subjective Subjective: COVERING DR CERNA No new c/o. Remains confused and lethargic. Wakes to loud stimuli. Objective - Vital Signs/Intake and Output Vital Signs (last 24 hours): Temp Pulse Resp BP Pulse Ox 97.4 F L 62 18 130/70 97 08/07/17 08:38 08/07/17 08:38 08/07/17 08:38 08/07/17 08:38 08/07/17 08:38 Intake and Output: 08/07/17 08/07/17 06:59 18:59 Intake Total 960 Balance 960 - Medications Medications: Current Medications Atenolol (Tenormin) 50 mg PO DAILY [facility] Last Admin: 08/07/17 10:03 Dose: 50 mg Dronabinol (Marinol) 2.5 mg PO DAILY [facility] Last Admin: 08/06/17 10:01 Dose: 2.5 mg Enoxaparin Sodium (Lovenox) 40 mg SC DAILY [facility] Last Admin: 08/07/17 10:03 Dose: 40 mg Dextrose/Sodium Chloride (Dextrose 5%/0.45% Ns 1000 Ml) 1,000 mls @ 60 mls/hr IV .[id number] [facility] Last Admin: 08/07/17 05:53 Dose: 60 mls/hr Levothyroxine Sodium (Synthroid) 25 mcg PO DAILY@0630 [facility] Last Admin: 08/07/17 06:29 Dose: 25 mcg Mirtazapine (Remeron) 7.5 mg PO HS [facility] Last Admin: 08/06/17 21:05 Dose: Not Given Ondansetron HCl (Zofran Inj) 4 mg IVP Q4 PRN PRN Reason: vomitting Last Admin: 08/04/17 09:09 Dose: 4 mg Pantoprazole Sodium (Protonix Ec Tab) 40 mg PO DAILY [facility] Last Admin: 08/07/17 10:03 Dose: 40 mg Potassium Chloride (K-Dur 20 Meq Er Tab) 40 meq PO DAILY [facility] Last Admin: 08/07/17 10:03 Dose: 40 meq - Labs Labs: 08/05/17 07:13 08/05/17 07:13 PT 13.6 SECONDS (9.7-12.2) H 07/27/17 10:30 INR 1.2 07/27/17 10:30 APTT 30 SECONDS (21-34) 07/27/17 10:30 - Constitutional Appears: Confused, Cachectic - Head Exam Head Exam: ATRAUMATIC, NORMOCEPHALIC - Respiratory Exam Respiratory Exam: NORMAL BREATHING PATTERN - Cardiovascular Exam Cardiovascular Exam: REGULAR RHYTHM - GI/Abdominal Exam GI & Abdominal Exam: Soft, Normal Bowel Sounds. absent: Tenderness - Extremities Exam Extremities Exam: Normal Inspection Assessment and Plan (1) Gastroparesis Status: Acute (2) Nausea and vomiting Assessment & Plan: no reports of N/V. Status: Acute (3) Malnutrition Assessment & Plan: Consideration for alternative means of feeding if po intake continues to be insufficient. Status: Chronic
--- NOTE | 2017-08-07 17:40 | PN ---
DATE: 08/07/2017 SUBJECTIVE: Patient is seen. Patient's mental status continues to deteriorate. Patient is noted to be very sleepy and lethargic when seen. She ate a little of her breakfast, not complaining of pain, according to the nurse who this time visited briefly earlier today. PHYSICAL EXAMINATION: VITAL SIGNS: Temperature 97.4, pulse rate is 62, blood pressure is 130/70, respirations 18, oxygen saturation 97%. GENERAL: Patient is lethargic in her room. Patient is on oxygen mask. Her saturation went down earlier. SKIN: No diaphoresis. HEENT: No headache or dizziness. RESPIRATORY: No dyspnea. CARDIOVASCULAR: No chest pain. GASTROINTESTINAL: Appetite is still very poor. EXTREMITIES: Patient has cyanotic toes and her feet are still cold, not complaining of pain. MUSCULOSKELETAL: Feels weak. NEUROLOGIC: Lethargic with increasing confusion. Patient is currently DNR and DNH and also referred for palliative care. MENTAL STATUS EXAMINATION: A chronically ill, cachectic female who looks stated age and lethargic. Speech is slow. Affect is restricted. Mood is dysphoric. Thought process confused. Thought content, no overt psychosis,no suicidal ideation. Attention and memory impaired. Insight and judgment impaired. Impulse control is fair at this time. IMPRESSION: Terminal stage delirium, history of depression, dementia, failure to thrive. PLAN AND RECOMMENDATIONS: The patient is seen and meds reviewed. Continue present management, supportive care. Patient is for palliative care. Continue psych meds as ordered. Chin Kemp MD MTDD
--- NOTE | 2017-08-07 23:23 | CP.PCM.PN ---
Subjective - Date & Time of Evaluation Date of Evaluation: 08/07/17 Time of Evaluation: 19:00 - Subjective Subjective: Patient remains confused, refuses to swallow any pill, any foods. Cyanosis of the feet unchanged. Objective - Vital Signs/Intake and Output Vital Signs (last 24 hours): Temp Pulse Resp BP Pulse Ox 97.5 F L 87 18 121/63 100 08/07/17 16:21 08/07/17 16:21 08/07/17 16:21 08/07/17 16:21 08/07/17 16:21 Intake and Output: 08/07/17 08/08/17 18:59 06:59 Intake Total 320 Balance 320 - Medications Medications: Current Medications Atenolol (Tenormin) 50 mg PO DAILY [facility] Last Admin: 08/07/17 10:03 Dose: 50 mg Dronabinol (Marinol) 2.5 mg PO DAILY [facility] Last Admin: 08/06/17 10:01 Dose: 2.5 mg Enoxaparin Sodium (Lovenox) 40 mg SC DAILY [facility] Last Admin: 08/07/17 10:03 Dose: 40 mg Dextrose/Sodium Chloride (Dextrose 5%/0.45% Ns 1000 Ml) 1,000 mls @ 60 mls/hr IV .[id number] [facility] Last Admin: 08/07/17 21:20 Dose: 60 mls/hr Levothyroxine Sodium (Synthroid) 25 mcg PO DAILY@0630 [facility] Last Admin: 08/07/17 06:29 Dose: 25 mcg Mirtazapine (Remeron) 7.5 mg PO HS [facility] Last Admin: 08/07/17 21:20 Dose: 7.5 mg Ondansetron HCl (Zofran Inj) 4 mg IVP Q4 PRN PRN Reason: vomitting Last Admin: 08/04/17 09:09 Dose: 4 mg Pantoprazole Sodium (Protonix Ec Tab) 40 mg PO DAILY [facility] Last Admin: 08/07/17 10:03 Dose: 40 mg Potassium Chloride (K-Dur 20 Meq Er Tab) 40 meq PO DAILY [facility] Last Admin: 08/07/17 10:03 Dose: 40 meq - Labs Labs: 08/05/17 07:13 08/05/17 07:13 PT 13.6 SECONDS (9.7-12.2) H 07/27/17 10:30 INR 1.2 07/27/17 10:30 APTT 30 SECONDS (21-34) 07/27/17 10:30 - Constitutional Appears: No Acute Distress, Confused, Cachectic, Chronically Ill - Head Exam Head Exam: NORMAL INSPECTION - Eye Exam Eye Exam: Normal appearance Pupil Exam: NORMAL ACCOMODATION - ENT Exam ENT Exam: Normal Exam - Neck Exam Neck Exam: Normal Inspection - Respiratory Exam Additional comments: Few rhonchi heard at both bases. - Cardiovascular Exam Cardiovascular Exam: REGULAR RHYTHM - GI/Abdominal Exam GI & Abdominal Exam: Soft, Normal Bowel Sounds - Rectal Exam Rectal Exam: Deferred - Extremities Exam Additional comments: Cyanotic and cold feet. - Back Exam Back Exam: NORMAL INSPECTION - Neurological Exam Neurological Exam: Awake Additional comments: Confused. - Psychiatric Exam Psychiatric exam: Flat Affect - Skin Skin Exam: Dry, Intact, Warm Assessment and Plan (1) Hypokalemia Status: Resolved (2) Fall Status: Resolved (3) Anemia Status: Chronic (4) Malnutrition Assessment & Plan: Patient still refuses to swallow any foods, any pill. Status: Chronic (5) Fracture of right inferior pubic ramus Status: Acute (6) Esophageal candidiasis Status: Acute (7) Gastritis due to Helicobacter species Status: Acute
[2017-08-08] MEDS: Levothyroxine 25 MCG TAB PO SCH (05:32)
[2017-08-08] MEDS: Potassium Chloride 20 mEq ER Tab PO SCH (10:36)
[2017-08-08] MEDS: Pantoprazole 40 mg EC Tab PO SCH (10:36)
[2017-08-08] MEDS: Enoxaparin 40 mg Syringe SC SCH (10:36)
--- NOTE | 2017-08-08 11:48 | CP.PCM.PN ---
Subjective - Date & Time of Evaluation Date of Evaluation: 08/08/17 Time of Evaluation: 11:46 - Subjective Subjective: COVERING DR CERNA Consumed 75% of her liquid diet today. Still confused but more alert. No c/o. Objective - Vital Signs/Intake and Output Vital Signs (last 24 hours): Temp Pulse Resp BP Pulse Ox 97.6 F 56 L 20 132/67 100 08/08/17 09:31 08/08/17 09:31 08/08/17 09:31 08/08/17 09:31 08/08/17 09:31 Intake and Output: 08/08/17 08/08/17 06:59 18:59 Intake Total 850 Balance 850 - Medications Medications: Current Medications Atenolol (Tenormin) 50 mg PO DAILY [facility] Last Admin: 08/08/17 10:36 Dose: 50 mg Dronabinol (Marinol) 2.5 mg PO DAILY [facility] Last Admin: 08/08/17 10:36 Dose: 2.5 mg Enoxaparin Sodium (Lovenox) 40 mg SC DAILY [facility] Last Admin: 08/08/17 10:36 Dose: 40 mg Dextrose/Sodium Chloride (Dextrose 5%/0.45% Ns 1000 Ml) 1,000 mls @ 60 mls/hr IV .[id number] [facility] Last Admin: 08/07/17 21:20 Dose: 60 mls/hr Levothyroxine Sodium (Synthroid) 25 mcg PO DAILY@0630 [facility] Last Admin: 08/08/17 05:32 Dose: 25 mcg Mirtazapine (Remeron) 7.5 mg PO HS [facility] Last Admin: 08/07/17 21:20 Dose: 7.5 mg Ondansetron HCl (Zofran Inj) 4 mg IVP Q4 PRN PRN Reason: vomitting Last Admin: 08/04/17 09:09 Dose: 4 mg Pantoprazole Sodium (Protonix Ec Tab) 40 mg PO DAILY [facility] Last Admin: 08/08/17 10:36 Dose: 40 mg Potassium Chloride (K-Dur 20 Meq Er Tab) 40 meq PO DAILY [facility] Last Admin: 08/08/17 10:36 Dose: 40 meq - Labs Labs: 08/05/17 07:13 08/05/17 07:13 PT 13.6 SECONDS (9.7-12.2) H 07/27/17 10:30 INR 1.2 07/27/17 10:30 APTT 30 SECONDS (21-34) 07/27/17 10:30 - Constitutional Appears: Confused, Cachectic - Respiratory Exam Respiratory Exam: NORMAL BREATHING PATTERN - Cardiovascular Exam Cardiovascular Exam: REGULAR RHYTHM, +S1 - GI/Abdominal Exam GI & Abdominal Exam: Soft, Normal Bowel Sounds. absent: Distended, Guarding, Rigid, Tenderness, Mass, Rebound - Extremities Exam Extremities Exam: Normal Inspection Assessment and Plan (1) Gastroparesis Assessment & Plan: Advance diet as tolerated May need alternative means of feeding (PEG) if family agreeable and po remains inadequate. Status: Acute (2) Nausea and vomiting Status: Acute (3) Malnutrition Status: Chronic
--- NOTE | 2017-08-08 12:06 | CP.PCM.PN ---
Subjective - Date & Time of Evaluation Date of Evaluation: 08/08/17 Time of Evaluation: 06:20 - Subjective Subjective: Vascular surgery- Dr. Lozada Pt S&E at bedside this AM. No change in mentation. does not follow verbal command. per nursing notes, no acute events overnight. Objective - Vital Signs/Intake and Output Vital Signs (last 24 hours): Temp Pulse Resp BP Pulse Ox 97.6 F 56 L 20 132/67 100 08/08/17 09:31 08/08/17 09:31 08/08/17 09:31 08/08/17 09:31 08/08/17 09:31 Intake and Output: 08/08/17 08/08/17 06:59 18:59 Intake Total 850 Balance 850 - Medications Medications: Current Medications Atenolol (Tenormin) 50 mg PO DAILY [facility] Last Admin: 08/08/17 10:36 Dose: 50 mg Dronabinol (Marinol) 2.5 mg PO DAILY [facility] Last Admin: 08/08/17 10:36 Dose: 2.5 mg Enoxaparin Sodium (Lovenox) 40 mg SC DAILY [facility] Last Admin: 08/08/17 10:36 Dose: 40 mg Dextrose/Sodium Chloride (Dextrose 5%/0.45% Ns 1000 Ml) 1,000 mls @ 60 mls/hr IV .[id number] [facility] Last Admin: 08/07/17 21:20 Dose: 60 mls/hr Levothyroxine Sodium (Synthroid) 25 mcg PO DAILY@0630 [facility] Last Admin: 08/08/17 05:32 Dose: 25 mcg Mirtazapine (Remeron) 7.5 mg PO HS [facility] Last Admin: 08/07/17 21:20 Dose: 7.5 mg Ondansetron HCl (Zofran Inj) 4 mg IVP Q4 PRN PRN Reason: vomitting Last Admin: 08/04/17 09:09 Dose: 4 mg Pantoprazole Sodium (Protonix Ec Tab) 40 mg PO DAILY [facility] Last Admin: 08/08/17 10:36 Dose: 40 mg Potassium Chloride (K-Dur 20 Meq Er Tab) 40 meq PO DAILY [facility] Last Admin: 08/08/17 10:36 Dose: 40 meq - Labs Labs: 08/05/17 07:13 08/05/17 07:13 PT 13.6 SECONDS (9.7-12.2) H 07/27/17 10:30 INR 1.2 07/27/17 10:30 APTT 30 SECONDS (21-34) 07/27/17 10:30 - Constitutional Appears: Non-toxic, No Acute Distress - Head Exam Head Exam: absent: ATRAUMATIC - Eye Exam Eye Exam: EOMI, Scleral icterus - ENT Exam ENT Exam: Mucous Membranes Moist - Respiratory Exam Respiratory Exam: NORMAL BREATHING PATTERN. absent: Accessory Muscle Use, Respiratory Distress - Cardiovascular Exam Cardiovascular Exam: +S1, +S2. absent: Bradycardia, Tachycardia - GI/Abdominal Exam GI & Abdominal Exam: Soft. absent: Distended, Firm, Guarding, Rigid, Tenderness - Extremities Exam Additional comments: toes less blue. popliteal pulses +2 - Neurological Exam Neurological Exam: Alert, Awake, Oriented x3 - Skin Skin Exam: Intact, Warm Assessment and Plan - Assessment and Plan (Free Text) Assessment: 87F peripheral vascular disease. Plan: - f/u lower extremity US - patient not a good candidate for surgery - pending US, most likely no acute surgical intervention at this time - c/w medical management per primary - d/w Dr. Lozada surgical attending Khris Jackson PGY1
[2017-08-08] MEDS: Dextrose 5%/0.45% NS 1,000 ML IV SCH (16:05)
--- NOTE | 2017-08-08 23:09 | CP.PCM.PN ---
Subjective - Date & Time of Evaluation Date of Evaluation: 08/08/17 Time of Evaluation: 18:30 - Subjective Subjective: Patient much more alert, and much less confused today, has a better appetite. Objective - Vital Signs/Intake and Output Vital Signs (last 24 hours): Temp Pulse Resp BP Pulse Ox 97.9 F 64 20 123/61 97 08/08/17 16:38 08/08/17 16:38 08/08/17 16:38 08/08/17 16:38 08/08/17 16:38 - Medications Medications: Current Medications Atenolol (Tenormin) 50 mg PO DAILY [facility] Last Admin: 08/08/17 10:36 Dose: 50 mg Dronabinol (Marinol) 2.5 mg PO DAILY [facility] Last Admin: 08/08/17 10:36 Dose: 2.5 mg Enoxaparin Sodium (Lovenox) 40 mg SC DAILY [facility] Last Admin: 08/08/17 10:36 Dose: 40 mg Dextrose/Sodium Chloride (Dextrose 5%/0.45% Ns 1000 Ml) 1,000 mls @ 60 mls/hr IV .[id number] [facility] Last Admin: 08/08/17 16:05 Dose: 60 mls/hr Levothyroxine Sodium (Synthroid) 25 mcg PO DAILY@0630 [facility] Last Admin: 08/08/17 05:32 Dose: 25 mcg Mirtazapine (Remeron) 7.5 mg PO HS [facility] Last Admin: 08/08/17 21:07 Dose: 7.5 mg Ondansetron HCl (Zofran Inj) 4 mg IVP Q4 PRN PRN Reason: vomitting Last Admin: 08/04/17 09:09 Dose: 4 mg Pantoprazole Sodium (Protonix Ec Tab) 40 mg PO DAILY [facility] Last Admin: 08/08/17 10:36 Dose: 40 mg Potassium Chloride (K-Dur 20 Meq Er Tab) 40 meq PO DAILY [facility] Last Admin: 08/08/17 10:36 Dose: 40 meq - Labs Labs: 08/05/17 07:13 08/05/17 07:13 PT 13.6 SECONDS (9.7-12.2) H 07/27/17 10:30 INR 1.2 07/27/17 10:30 APTT 30 SECONDS (21-34) 07/27/17 10:30 - Constitutional Appears: No Acute Distress, Cachectic, Chronically Ill - Head Exam Head Exam: NORMOCEPHALIC - Eye Exam Eye Exam: Normal appearance - ENT Exam ENT Exam: Normal Exam - Neck Exam Neck Exam: Normal Inspection - Respiratory Exam Respiratory Exam: Rhonchi Additional comments: Few rhonchi bilaterally. - Cardiovascular Exam Cardiovascular Exam: REGULAR RHYTHM - GI/Abdominal Exam GI & Abdominal Exam: Soft, Normal Bowel Sounds - Rectal Exam Rectal Exam: Deferred - Extremities Exam Extremities Exam: Normal Inspection - Back Exam Back Exam: NORMAL INSPECTION - Neurological Exam Neurological Exam: Alert, Awake - Psychiatric Exam Psychiatric exam: Anxious - Skin Skin Exam: Dry, Intact, Normal Color, Warm Assessment and Plan (1) Hypokalemia Status: Resolved (2) Fall Status: Resolved (3) Anemia Status: Chronic (4) Malnutrition Status: Chronic (5) Fracture of right inferior pubic ramus Status: Acute (6) Esophageal candidiasis Status: Acute (7) Gastritis due to Helicobacter species Status: Acute
[2017-08-09] MEDS: Levothyroxine 25 MCG TAB PO SCH (05:37)
[2017-08-09] MEDS: Dextrose 5%/0.45% NS 1,000 ML IV SCH ×2 (05:37→20:00)
--- NOTE | 2017-08-09 09:31 | CP.PCM.PN ---
Subjective - Date & Time of Evaluation Date of Evaluation: 08/09/17 Time of Evaluation: 06:55 - Subjective Subjective: Vascular Surgery Pt S&E, NAEO. Pt without complaints at this time. Denies pain and numbness in feet. Objective - Vital Signs/Intake and Output Vital Signs (last 24 hours): Temp Pulse Resp BP Pulse Ox 98.0 F 70 18 128/67 93 L 08/09/17 08:15 08/09/17 08:15 08/09/17 08:15 08/09/17 08:15 08/09/17 08:15 Intake and Output: 08/09/17 08/09/17 06:59 18:59 Intake Total 530 Balance 530 - Medications Medications: Current Medications Atenolol (Tenormin) 50 mg PO DAILY [facility] Last Admin: 08/08/17 10:36 Dose: 50 mg Dronabinol (Marinol) 2.5 mg PO DAILY [facility] Last Admin: 08/08/17 10:36 Dose: 2.5 mg Enoxaparin Sodium (Lovenox) 40 mg SC DAILY [facility] Last Admin: 08/08/17 10:36 Dose: 40 mg Dextrose/Sodium Chloride (Dextrose 5%/0.45% Ns 1000 Ml) 1,000 mls @ 60 mls/hr IV .[id number] [facility] Last Admin: 08/09/17 05:37 Dose: 60 mls/hr Levothyroxine Sodium (Synthroid) 25 mcg PO DAILY@0630 [facility] Last Admin: 08/09/17 05:37 Dose: 25 mcg Mirtazapine (Remeron) 7.5 mg PO HS [facility] Last Admin: 08/08/17 21:07 Dose: 7.5 mg Ondansetron HCl (Zofran Inj) 4 mg IVP Q4 PRN PRN Reason: vomitting Last Admin: 08/04/17 09:09 Dose: 4 mg Pantoprazole Sodium (Protonix Ec Tab) 40 mg PO DAILY [facility] Last Admin: 08/08/17 10:36 Dose: 40 mg Potassium Chloride (K-Dur 20 Meq Er Tab) 40 meq PO DAILY [facility] Last Admin: 08/08/17 10:36 Dose: 40 meq - Labs Labs: 08/05/17 07:13 08/05/17 07:13 PT 13.6 SECONDS (9.7-12.2) H 07/27/17 10:30 INR 1.2 07/27/17 10:30 APTT 30 SECONDS (21-34) 07/27/17 10:30 - Constitutional Appears: Non-toxic, No Acute Distress - Head Exam Head Exam: ATRAUMATIC, NORMOCEPHALIC - Respiratory Exam Respiratory Exam: NORMAL BREATHING PATTERN. absent: Respiratory Distress - Extremities Exam Extremities Exam: Pedal Edema (trace). absent: Calf Tenderness Additional comments: LE equally warm B/L palp PT on R popliteal pulses +2 - Neurological Exam Neurological Exam: Alert, Awake - Skin Skin Exam: Dry, Warm Assessment and Plan - Assessment and Plan (Free Text) Assessment: 87F peripheral vascular disease. Plan: F/U lower extremity US Cont medical management per primary D/W Dr. Kierra Gilbert PGY4
[2017-08-09] MEDS: Pantoprazole 40 mg EC Tab PO SCH (09:44)
[2017-08-09] MEDS: Potassium Chloride 20 mEq ER Tab PO SCH (09:44)
[2017-08-09] MEDS: Enoxaparin 40 mg Syringe SC SCH (09:45)
--- NOTE | 2017-08-09 11:27 | CP.PCM.CON ---
History of Present Illness - History of Present Illness History of Present Illness: Palliative consult requested by Doctor Lesly Neely for goals of care discussion Patient is a 87 yo female admitted from home post fall. patient complained of right sided pain post fall. The Right Hip x Ray was negative fracture. Patient was also notd to have a very poor appetite. The CT abdomen was significant for possible colonic ileus. The EGD with Bx showed h Pylori presence and Colonoscopy was significant for polyps. Patient initially had a very poor appetite which has improved. per nursing patient consumed about 75 % of her liquid diet . PMH: HTN, diarhhea on and off for some time, confusion Soc. Hx: single , lives alone, [place]VIATAM, son Floyd chan;lawanda in care Fam. hx: Patient denies, no other records found Review of Systems - Review of Systems Systems not reviewed;Unavailable: Dementia - Constitutional Constitutional: Frequent Falls, Weight Loss, Weakness - EENT Eyes: absent: As Per HPI, Blind Spots, Blurred Vision, Change in Vision, Decreased Night Vision, Diplopia, Discharge, Dry Eye, Exophthalmos, Floaters, Irritation, Itchy Eyes, Loss of Peripheral Vision, Pain, Photophobia, Requires Corrective Lenses, Sees Flashes, Spots in Vision, Tunnel Vision, Other Visual Disturbances, Loss of Vision, Other Ears: Abnormal Hearing Nose/Mouth/Throat: absent: As Per HPI, Epistaxis, Nasal Congestion, Nasal Discharge, Nasal Obstruction, Nasal Trauma, Nose Pain, Post Nasal Drip, Sinus Pain, Sinus Pressure, Bleeding Gums, Change in Voice, Dental Pain, Dry Mouth, Dysphagia, Halitosis, Hoarsness, Lip Swelling, Mouth Lesions, Mouth Pain, Odynophagia, Sore Throat, Throat Swelling, Tongue Swelling, Facial Pain, Neck Pain, Neck Mass, Other - Breasts Breasts: absent: As Per HPI, Change in Shape, Mass, Pain, Nipple Discharge, Nipple Inversion, Skin Changes, Swelling, Other - Cardiovascular Cardiovascular: absent: As Per HPI, Acrocyanosis, Chest Pain, Chest Pain at Rest , Chest Pain with Activity, Claudication, Diaphoresis, Dyspnea, Dyspnea on Exertion, Edema, Irregular Heart Rhythm, Pain Radiating to Arm/Neck/Jaw, Leg Edema, Leg Ulcers, Lightheadedness, Orthopnea, Palpitations, Paroxysmal Nocturnal Dyspnea, Pedal Edema, Radiating Pain, Rapid Heart Rate, Slow Heart Rate, Syncope, Other - Respiratory Respiratory: absent: As Per HPI, Cough, Dyspnea, Hemoptysis, Dyspnea on Exertion , Wheezing, Snoring, Stridor, Pain on Inspiration, Chest Congestion, Excessive Mucous Production, Change in Mucous Color, Pain with Coughing, Other - Gastrointestinal Gastrointestinal: Diarrhea - Genitourinary Genitourinary: Urinary Incontinence - Reproductive: Female Reproductive:Female: Post Menopausal - Menstruation Menstruation: Post Menopausal - Musculoskeletal Musculoskeletal: Muscle Weakness - Integumentary Integumentary: absent: As Per HPI, Acne, Alopecia, Bleeding Lesions, Change in Hair, Change in Nails, Change in Pigmentation, Changing Lesions, Dry Skin, Erythema, Furuncle, Hirsutism, Lesions, New Lesions, Non-Healing Lesions, Photosensitivity, Pruritus, Rash, Skin Pain, Skin Ulcer, Sores, Striae, Swelling , Unusual Bruising, Wounds, Jaundice, Other - Neurological Neurological: Focal Weakness - Psychiatric Psychiatric: Memory Loss - Endocrine Endocrine: absent: As Per HPI, Change in Body Appearance, Change in Libido, Cold Intolorance, Deepening of Voice, Excessive Sweating, Fatigue, Flushing, Heat Intolorance, Increase in Ring/Shoe/Hat Size, Palpitations, Polydipsia, Polyphagia, Polyuria, Other - Hematologic/Lymphatic Hematologic: absent: As Per HPI, Easy Bleeding, Easy Bruising, Lymphadenopathy, Other Past Patient History - Past Medical History & Family History Past Medical History?: Yes - Past Social History Smoking Status: Never Smoked Alcohol: None Drugs: Denies Home Situation {Lives}: Alone - CARDIAC Hx Hypertension: Yes - PULMONARY Hx Respiratory Disorders: No - NEUROLOGICAL Hx Neurological Disorder: No - HEENT Hx HEENT Problems: No - RENAL Hx Chronic Kidney Disease: No - ENDOCRINE/METABOLIC Hx Endocrine Disorders: Yes Hx Hypothyroidism: Yes - HEMATOLOGICAL/ONCOLOGICAL Hx Blood Disorders: No - INTEGUMENTARY Hx Dermatological Problems: No - MUSCULOSKELETAL/RHEUMATOLOGICAL Hx Musculoskeletal Disorders: Yes Hx Falls: Yes - GASTROINTESTINAL Hx Gastrointestinal Disorders: Yes Hx Diarrhea: Yes (FEW MONTHS) - GENITOURINARY/GYNECOLOGICAL Hx Genitourinary Disorders: No - PSYCHIATRIC Hx Substance Use: No - SURGICAL HISTORY Hx Surgeries: No - ANESTHESIA Hx Anesthesia: No Hx Anesthesia Reactions: No Meds Allergies/Adverse Reactions: Allergies Allergy/AdvReac Type Severity Reaction Status Date / Time No Known Allergies Allergy Verified 07/27/17 08:48 - Medications Medications: Current Medications Atenolol (Tenormin) 50 mg PO DAILY [facility] Last Admin: 08/09/17 09:44 Dose: 50 mg Cyanocobalamin (Vitamin B12 1000 Mcg/Ml Inj) 1,000 mcg IM QD7 [facility] Dronabinol (Marinol) 2.5 mg PO DAILY [facility] Last Admin: 08/09/17 09:44 Dose: 2.5 mg Enoxaparin Sodium (Lovenox) 40 mg SC DAILY [facility] Last Admin: 08/09/17 09:45 Dose: 40 mg Dextrose/Sodium Chloride (Dextrose 5%/0.45% Ns 1000 Ml) 1,000 mls @ 60 mls/hr IV .[id number] [facility] Last Admin: 08/09/17 05:37 Dose: 60 mls/hr Levothyroxine Sodium (Synthroid) 25 mcg PO DAILY@0630 [facility] Last Admin: 08/09/17 05:37 Dose: 25 mcg Mirtazapine (Remeron) 7.5 mg PO HS [facility] Last Admin: 08/08/17 21:07 Dose: 7.5 mg Ondansetron HCl (Zofran Inj) 4 mg IVP Q4 PRN PRN Reason: vomitting Last Admin: 08/04/17 09:09 Dose: 4 mg Pantoprazole Sodium (Protonix Ec Tab) 40 mg PO DAILY [facility] Last Admin: 08/09/17 09:44 Dose: 40 mg Potassium Chloride (K-Dur 20 Meq Er Tab) 40 meq PO DAILY [facility] Last Admin: 08/09/17 09:44 Dose: 40 meq Physical Exam - Constitutional Appears: No Acute Distress - Head Exam Head Exam: ATRAUMATIC, NORMAL INSPECTION, NORMOCEPHALIC - Eye Exam Eye Exam: EOMI, Normal appearance, PERRL Pupil Exam: NORMAL ACCOMODATION, PERRL - ENT Exam ENT Exam: Mucous Membranes Moist, Normal Exam - Neck Exam Neck exam: Positive for: Normal Inspection - Respiratory Exam Respiratory Exam: Decreased Breath Sounds, Clear to Auscultation Bilateral - Cardiovascular Exam Cardiovascular Exam: REGULAR RHYTHM - GI/Abdominal Exam GI & Abdominal Exam: Hypoactive Bowel Sounds - Rectal Exam Rectal Exam: Deferred - Extremities Exam Extremities exam: Positive for: normal inspection - Back Exam Back exam: NORMAL INSPECTION - Neurological Exam Neurological exam: Alert - Psychiatric Exam Psychiatric exam: Normal Affect, Normal Mood - Skin Skin Exam: Dry, Intact, Normal Color, Warm Results - Vital Signs Recent Vital Signs: Last Vital Signs Temp 98.0 F 08/09/17 08:15 Pulse 70 08/09/17 08:15 Resp 18 08/09/17 08:15 BP 128/67 08/09/17 08:15 Pulse Ox 93 L 08/09/17 08:15 - Labs Result Diagrams: 08/05/17 07:13 08/05/17 07:13 Labs: Laboratory Results - last 24 hr 08/08/17 08/09/17 12:06 06:28 POC Glucose (mg/dL) 99 93 Assessment & Plan - Assessment and Plan (Free Text) Assessment: Palliative consult Code status DNR/DNI, Living will on chart, PPS 20% I saw patient just this morning, was off last week. I reviewed medical records, all diagnostic studies, examined and interviewed patient in the bed patient is alert, oriented to person and time with speech that is clear. Patient is extremely [place] what makes interview very difficult. patient was being attended by PT. Per PT, patient walked with them the other day with assistance of one. patient denies pain to right hip. Breath sounds are clear and regular. Abdomen soft, flat with active bowel sounds. Denies nausea, denies diarhhea. Per nursing, patient had good appetite and is more alert. BP 124/59, HR 101, afebrile. WBC 3.4, Hb 9.5, Alb 2.1 per GI, if patient does not improve with her appetite, the PEG tube may need to be considered. For now, that is on hold. Impression * Patient is an elderly, very fragile lady , looking cachectic, S/P fall * Patient is very [place]VI[place] what makes communication difficult * patient tolerates diet and ambulates with assistance * Living will on chart indicates DNR/DNI Suggestions * Promote way of communicating with patient, such as written words * I do not feel that patient is able to stay home alone as she is at risk of injuries * Agree with DNR/DNI * If nutrition becomes permanent issue I dileep;l talk to son regarding the PEG * Would discharge to [facility] if appetite steady and improved Thank you for consulting palliative Care
--- NOTE | 2017-08-09 17:58 | PN ---
DATE: 08/09/2017 SUBJECTIVE: The patient is seen. The patient is more alert, verbal today, answering appropriate question, although her appetite is still poor. The patient was seen by palliative care. The patient was recommended a PEG tube. The patient seems to be doing better compared to last few days. The patient is currently on Marinol and Remeron. Her last random blood sugar was 73. PHYSICAL EXAMINATION: VITAL SIGNS: Temperature 98, pulse rate is 81, blood pressure is 123/89, respirations 18, oxygen saturation 92%. REVIEW OF SYSTEMS: GENERAL: The patient is more alert, verbal, still hard of hearing, seen in her room resting comfortably, complaining of pain. SKIN: No diaphoresis. HEENT: No headache. No dizziness. NECK: Supple. RESPIRATORY: No dyspnea. CARDIOVASCULAR: No chest pain. GASTROINTESTINAL: Appetite is still poor but starting to tolerate liquids. No nausea, no vomiting. EXTREMITIES: The patient moving extremities. Cyanosis of the feet improving and complaining of pain. MUSCULOSKELETAL: Feels weak. NEUROLOGIC: Alert, less confused, oriented to place and person. MENTAL STATUS EXAMINATION: A frail, elderly female, who looks stated age, oriented x2. Mood is brighter. Affect is reactive. Speech is spontaneous. Thought process, less confused. Thought content: No overt psychosis. No suicidal or homicidal ideation. Attention and memory seem to be limited. Insight and judgment limited. Impulse control is fair at this time. IMPRESSION: History of delirium; metabolic encephalopathy; dementia; failure to thrive, improving. PLAN AND RECOMMENDATIONS: The patient is seen and meds reviewed. Continue present psych meds as recommended by palliative care. The patient may benefit from PEG tube feeding as she seems to be improving better then to be placed in the [facility]. The patient seems to improve clinically, although her appetite is still poor. I will keep her with a current dose of Marinol 2.5 mg at bedtime as well as Remeron 7.5 mg at bedtime based on her current weight of 80 pounds. Continue treatment plan as outlined. Chin Kemp MD
--- NOTE | 2017-08-09 19:44 | CP.PCM.PN ---
Subjective - Date & Time of Evaluation Date of Evaluation: 08/09/17 Time of Evaluation: 19:42 - Subjective Subjective: Patient is alert, in no respiratory distress, with a little better appetite. Still slightly confused. Objective - Vital Signs/Intake and Output Vital Signs (last 24 hours): Temp Pulse Resp BP Pulse Ox 98.0 F 81 18 128/67 92 L 08/09/17 08:15 08/09/17 12:42 08/09/17 08:15 08/09/17 08:15 08/09/17 12:42 Intake and Output: 08/09/17 08/10/17 18:59 06:59 Intake Total 500 Balance 500 - Medications Medications: Current Medications Atenolol (Tenormin) 50 mg PO DAILY [facility] Last Admin: 08/09/17 09:44 Dose: 50 mg Cyanocobalamin (Vitamin B12 1000 Mcg/Ml Inj) 1,000 mcg IM QD7 [facility] Dronabinol (Marinol) 2.5 mg PO DAILY [facility] Last Admin: 08/09/17 09:44 Dose: 2.5 mg Enoxaparin Sodium (Lovenox) 40 mg SC DAILY [facility] Last Admin: 08/09/17 09:45 Dose: 40 mg Dextrose/Sodium Chloride (Dextrose 5%/0.45% Ns 1000 Ml) 1,000 mls @ 60 mls/hr IV .[id number] [facility]ES [facility] Last Admin: 08/09/17 05:37 Dose: 60 mls/hr Levothyroxine Sodium (Synthroid) 25 mcg PO DAILY@0630 [facility] Last Admin: 08/09/17 05:37 Dose: 25 mcg Mirtazapine (Remeron) 7.5 mg PO HS [facility] Last Admin: 08/08/17 21:07 Dose: 7.5 mg Ondansetron HCl (Zofran Inj) 4 mg IVP Q4 PRN PRN Reason: vomitting Last Admin: 08/04/17 09:09 Dose: 4 mg Pantoprazole Sodium (Protonix Ec Tab) 40 mg PO DAILY [facility] Last Admin: 08/09/17 09:44 Dose: 40 mg Potassium Chloride (K-Dur 20 Meq Er Tab) 40 meq PO DAILY [facility] Last Admin: 08/09/17 09:44 Dose: 40 meq - Labs Labs: 08/05/17 07:13 08/05/17 07:13 PT 13.6 SECONDS (9.7-12.2) H 07/27/17 10:30 INR 1.2 07/27/17 10:30 APTT 30 SECONDS (21-34) 07/27/17 10:30 - Constitutional Appears: No Acute Distress, Cachectic, Chronically Ill - Head Exam Head Exam: NORMAL INSPECTION - Eye Exam Eye Exam: Normal appearance - ENT Exam ENT Exam: Normal Exam - Neck Exam Neck Exam: Normal Inspection - Respiratory Exam Respiratory Exam: Rhonchi - Cardiovascular Exam Cardiovascular Exam: REGULAR RHYTHM, Murmur - GI/Abdominal Exam GI & Abdominal Exam: Soft, Normal Bowel Sounds - Rectal Exam Rectal Exam: Deferred - Extremities Exam Additional comments: Cyanotic and cold feet. - Back Exam Back Exam: NORMAL INSPECTION - Neurological Exam Neurological Exam: Alert, Awake - Psychiatric Exam Psychiatric exam: Anxious Assessment and Plan (1) Hypokalemia Status: Resolved (2) Fall Status: Resolved (3) Anemia Status: Chronic (4) Malnutrition Status: Chronic (5) Fracture of right inferior pubic ramus Status: Acute (6) Esophageal candidiasis Status: Acute (7) Gastritis due to Helicobacter species Status: Acute
[2017-08-10] MEDS: Dextrose 5%/0.45% NS 1,000 ML IV SCH (03:09)
[2017-08-10] MEDS: Levothyroxine 25 MCG TAB PO SCH (05:59)
[2017-08-10] MEDS: Enoxaparin 40 mg Syringe SC SCH (10:01)
[2017-08-10] MEDS: Potassium Chloride 20 mEq ER Tab PO SCH (10:02)
[2017-08-10] MEDS: Pantoprazole 40 mg EC Tab PO SCH (10:03)
--- NOTE | 2017-08-10 11:20 | CP.PCM.PN ---
Subjective - Date & Time of Evaluation Date of Evaluation: 08/10/17 Time of Evaluation: 06:35 - Subjective Subjective: Vascular Surgery Pt S&E, NAEO. Denies any foot pain at this time. Objective - Vital Signs/Intake and Output Vital Signs (last 24 hours): Temp Pulse Resp BP Pulse Ox 97.6 F 76 20 147/72 98 08/10/17 07:00 08/10/17 07:00 08/10/17 07:00 08/10/17 07:00 08/10/17 07:00 Intake and Output: 08/10/17 08/10/17 06:59 18:59 Intake Total 600 Balance 600 - Medications Medications: Current Medications Atenolol (Tenormin) 50 mg PO DAILY [facility] Last Admin: 08/10/17 10:03 Dose: 50 mg Cyanocobalamin (Vitamin B12 1000 Mcg/Ml Inj) 1,000 mcg IM QD7 [facility] Dronabinol (Marinol) 2.5 mg PO DAILY [facility] Last Admin: 08/10/17 10:12 Dose: 2.5 mg Enoxaparin Sodium (Lovenox) 40 mg SC DAILY [facility] Last Admin: 08/10/17 10:01 Dose: 40 mg Levothyroxine Sodium (Synthroid) 25 mcg PO DAILY@0630 [facility] Last Admin: 08/10/17 05:59 Dose: 25 mcg Mirtazapine (Remeron) 7.5 mg PO HS [facility] Last Admin: 08/09/17 21:34 Dose: 7.5 mg Ondansetron HCl (Zofran Inj) 4 mg IVP Q4 PRN PRN Reason: vomitting Last Admin: 08/04/17 09:09 Dose: 4 mg Pantoprazole Sodium (Protonix Ec Tab) 40 mg PO DAILY [facility] Last Admin: 08/10/17 10:03 Dose: 40 mg Potassium Chloride (K-Dur 20 Meq Er Tab) 40 meq PO DAILY [facility] Last Admin: 08/10/17 10:02 Dose: 40 meq - Labs Labs: 08/05/17 07:13 08/05/17 07:13 PT 13.6 SECONDS (9.7-12.2) H 07/27/17 10:30 INR 1.2 07/27/17 10:30 APTT 30 SECONDS (21-34) 07/27/17 10:30 - Constitutional Appears: Non-toxic, No Acute Distress - Head Exam Head Exam: ATRAUMATIC, NORMOCEPHALIC - Respiratory Exam Respiratory Exam: NORMAL BREATHING PATTERN. absent: Respiratory Distress - Extremities Exam Additional comments: LE equally warm B/L palp PT on R popliteal pulses +2 - Neurological Exam Neurological Exam: Alert, Awake - Skin Skin Exam: Dry, Warm Assessment and Plan - Assessment and Plan (Free Text) Assessment: 87F peripheral vascular disease. Plan: F/U lower extremity US Cont medical management per primary D/W Dr. Kierra Gilbert PGY4
--- NOTE | 2017-08-10 14:05 | PN ---
DATE: 08/10/2017 SUBJECTIVE: The patient is seen. The patient seems to be improving clinically, more alert, verbal, less confused. The patient is still hard of hearing. The nurse is asking if her diet could be advanced as the patient is only on liquids. The patient also started by Dr. Gurrola B12 supplements. Psych yang, the patient is on Marinol 2.5 mg daily as well as Remeron 7.5 mg at bedtime. I will keep her at the current dose due to her weight of 80 pounds. PHYSICAL EXAMINATION: VITAL SIGNS: Temperature 97.6, pulse rate is 66, blood pressure is 144/67, respirations 20, oxygen sat is 100%. REVIEW OF SYSTEMS: GENERAL: The patient is more alert, verbal, seen in her room, very cooperative. We will stop providing her care. SKIN: No diaphoresis. HEENT: No headache. No dizziness. The patient is still hard of hearing. NECK: Supple. RESPIRATORY: No dyspnea. CARDIOVASCULAR: No chest pain. GASTROINTESTINAL: Appetite is still poor but starting to eat more. EXTREMITIES: The patient cyanosis in her feet is improving, not complaining of pain. MUSCULOSKELETAL: Feels weak. NEUROLOGIC: Alert, more cognitively improved. GENITOURINARY: No urinary problems. MENTAL STATUS: Chronically ill female, who looks stated age, more alert and verbal today, still hard of hearing. Speech is spontaneous. Affect is reactive. Mood is brighter. Thought process is less confused. Thought content: No overt psychosis. No suicidal ideation. Attention and memory seem to be limited. Insight and judgment limited. Impulse control is fair at this time. IMPRESSION: Delirium, metabolic encephalopathy, dementia, failure to thrive, improving. PLAN AND RECOMMENDATIONS: The patient is seen and meds reviewed. Continue present management. I do agree that her diet can be advanced to soft diet if the patient is eating. She is not complaining of dysphagia. Psych yang, I will keep her in her current dose of Marinol 2.5 mg daily as well as Remeron 7.5 mg at bedtime. The patient is also on B12 supplements, supportive care. Once the patient is more medically stable, the patient can go for subacute rehab. Chin Kemp, MD [facility] # [id number] MTDD
--- NOTE | 2017-08-10 14:32 | CP.PCM.PN ---
Subjective - Date & Time of Evaluation Date of Evaluation: 08/10/17 Time of Evaluation: 14:29 - Subjective Subjective: Patient is alert, much less confused, with better appetite. Objective - Vital Signs/Intake and Output Vital Signs (last 24 hours): Temp Pulse Resp BP Pulse Ox 97.6 F 66 20 147/72 100 08/10/17 07:00 08/10/17 12:00 08/10/17 07:00 08/10/17 07:00 08/10/17 12:00 Intake and Output: 08/10/17 08/10/17 06:59 18:59 Intake Total 600 Balance 600 - Medications Medications: Current Medications Atenolol (Tenormin) 50 mg PO DAILY [facility] Last Admin: 08/10/17 10:03 Dose: 50 mg Cyanocobalamin (Vitamin B12 1000 Mcg/Ml Inj) 1,000 mcg IM QD7 [facility] Dronabinol (Marinol) 2.5 mg PO DAILY [facility] Last Admin: 08/10/17 10:12 Dose: 2.5 mg Enoxaparin Sodium (Lovenox) 40 mg SC DAILY [facility] Last Admin: 08/10/17 10:01 Dose: 40 mg Levothyroxine Sodium (Synthroid) 25 mcg PO DAILY@0630 [facility] Last Admin: 08/10/17 05:59 Dose: 25 mcg Mirtazapine (Remeron) 7.5 mg PO HS [facility] Last Admin: 08/09/17 21:34 Dose: 7.5 mg Ondansetron HCl (Zofran Inj) 4 mg IVP Q4 PRN PRN Reason: vomitting Last Admin: 08/04/17 09:09 Dose: 4 mg Pantoprazole Sodium (Protonix Ec Tab) 40 mg PO DAILY [facility] Last Admin: 08/10/17 10:03 Dose: 40 mg Potassium Chloride (K-Dur 20 Meq Er Tab) 40 meq PO DAILY [facility] Last Admin: 08/10/17 10:02 Dose: 40 meq - Labs Labs: 08/05/17 07:13 08/05/17 07:13 PT 13.6 SECONDS (9.7-12.2) H 07/27/17 10:30 INR 1.2 07/27/17 10:30 APTT 30 SECONDS (21-34) 07/27/17 10:30 - Constitutional Appears: No Acute Distress, Cachectic, Chronically Ill - Head Exam Head Exam: NORMAL INSPECTION - Eye Exam Eye Exam: Normal appearance - ENT Exam ENT Exam: Normal Exam - Neck Exam Neck Exam: Normal Inspection - Respiratory Exam Respiratory Exam: Rhonchi (Rhonchi heard arthur) Additional comments: Rhochi heard bibasilarly. - Cardiovascular Exam Cardiovascular Exam: REGULAR RHYTHM - GI/Abdominal Exam GI & Abdominal Exam: Soft, Normal Bowel Sounds - Rectal Exam Rectal Exam: Deferred - Extremities Exam Extremities Exam: Normal Inspection - Back Exam Back Exam: NORMAL INSPECTION - Neurological Exam Neurological Exam: Alert, Awake - Psychiatric Exam Psychiatric exam: Anxious - Skin Skin Exam: Dry, Normal Color, Warm Assessment and Plan (1) Hypokalemia Status: Resolved (2) Fall Status: Resolved (3) Anemia Status: Chronic (4) Malnutrition Assessment & Plan: Advanced to soft diet. Status: Chronic (5) Fracture of right inferior pubic ramus Status: Acute (6) Esophageal candidiasis Status: Acute (7) Gastritis due to Helicobacter species Status: Acute
[2017-08-11] MEDS: Levothyroxine 25 MCG TAB PO SCH (05:32)
[2017-08-11 08:11] LABS: BASO % 0.2 % (0.0-2.0); EOS % 0.5 % (0.0-4.0); HEMATOCRIT 25.2 % (34.0-47.0); LYMPH # 1.1 K/uL (1.0-4.3); LYMPH % 22.9 % (20.0-40.0); MEAN CELL VOLUME 92.1 fL (81.0-99.0); MEAN CORPUSCULAR HEMOGLOBIN 31.7 pg (27.0-31.0); MEAN CORPUSCULAR HGB CONC 34.4 g/dL (33.0-37.0); MEAN PLATELET VOLUME 6.9 fL (7.2-11.7); MONO # 0.3 K/uL (0.0-0.8); MONO % 5.4 % (0.0-10.0); NRBC % 0.1 % (0.0-2.0); RED CELL DISTRIBUTION WIDTH 15.5 % (11.5-14.5); WHITE BLOOD COUNT 4.8 K/uL (4.8-10.8)
[2017-08-11 08:33] LABS: ALKALINE PHOSPHATASE 107 U/L (38-126); ALT/SGPT 28 U/L (9-52); AST/SGOT 20 U/L (14-36); BILIRUBIN,TOTAL 1.2 mg/dL (0.2-1.3); BLOOD UREA NITROGEN 11 mg/dL (7-17); CALCIUM 6.8 mg/dl (8.6-10.4); CARBON DIOXIDE 25 mmol/L (22-30); CHLORIDE 97 mmol/L (98-107); GFR AFRICAN-AMERICAN > 60; GLUCOSE,RANDOM 63 mg/dL (65-105); POTASSIUM 3.5 mmol/L (3.6-5.2); SODIUM 129 mmol/L (132-148)
[2017-08-11] MEDS: Pantoprazole 40 mg EC Tab PO SCH (10:14)
[2017-08-11] MEDS: Potassium Chloride 20 mEq ER Tab PO SCH (10:15)
[2017-08-11] MEDS: Enoxaparin 40 mg Syringe SC SCH (10:21)
--- NOTE | 2017-08-11 18:49 | PN ---
DATE: 08/11/2017 SUBJECTIVE: The patient is seen. The patient is more alert, verbal, still with periods of confusion. Her confusion seems to be compounded as patient is hard of hearing but the patient refuses to use her hearing aid. She is more alert and verbal compared to last few days, but still has very poor appetite. Her diet has been advanced. The patient is currently on Marinol and Remeron. Case discussed with Dr. Young. The patient may need a few days in the hospital before going to subacute rehab, but we will hold off any change of the psych meds for now as the patient is barely 80 pounds. PHYSICAL EXAMINATION: VITAL SIGNS: Temperature is 98, pulse rate 63, blood pressure 110/60, respirations 20, oxygen sat is 99% on nasal cannula. REVIEW OF SYSTEMS: GENERAL: The patient is alert, verbal, still confused, seen in her room, not agitated. SKIN: No diaphoresis. HEENT: Hard of hearing. No headache. No dizziness. NECK: Supple. RESPIRATORY: No dyspnea. CARDIOVASCULAR: No chest pain. GASTROINTESTINAL: The patient still has very poor appetite. The diet has been advanced. No nausea. No vomiting. EXTREMITIES: Gait is steady. MUSCULOSKELETAL: Feels week. NEUROLOGIC: Alert, still with periods of confusion, but improving. The patient was asking where she is, when seen. MENTAL STATUS EXAMINATION: Elderly female, looks very chronically ill, skinny. Affect is reactive. Speech is spontaneous, depressed. Thought process reactive to person, not sure why she was in hospital. Affect is reactive. Mood is dysphoric. Speech spontaneous. Thought process, has periods of confusion. Thought content, no overt psychosis. No suicidal or homicidal ideation. Attention and memory seem to be limited. Insight and judgment limited. Impulse control is fair at this time. IMPRESSION: Delirium, metabolic encephalopathy, possible dementia, failure to thrive, improving. PLAN AND RECOMMENDATIONS: The patient is seen, meds reviewed. According to Dr. Young, the patient has living will and does not want PEG tube or any extra resuscitative measure. I will continue the Remeron and the Marinol as ordered. Continue treatment plan as outlined. Once the patient is more medically stable, she can go for subacute rehab. Chin Kemp MD [facility] # [id number] [place]
--- NOTE | 2017-08-11 23:08 | CP.PCM.PN ---
Subjective - Date & Time of Evaluation Date of Evaluation: 08/11/17 Time of Evaluation: 13:00 - Subjective Subjective: Patient alert, confused, in no respiratory distress. Still with poor appetite. Objective - Vital Signs/Intake and Output Vital Signs (last 24 hours): Temp Pulse Resp BP Pulse Ox 97.2 F L 62 18 128/61 95 08/11/17 15:00 08/11/17 15:00 08/11/17 15:00 08/11/17 15:00 08/11/17 15:00 Intake and Output: 08/11/17 08/12/17 18:59 06:59 Intake Total 840 Balance 840 - Medications Medications: Current Medications Atenolol (Tenormin) 50 mg PO DAILY [facility] Last Admin: 08/11/17 10:28 Dose: Not Given Cyanocobalamin (Vitamin B12 1000 Mcg/Ml Inj) 1,000 mcg IM QD7 [facility] Dronabinol (Marinol) 2.5 mg PO DAILY [facility] Last Admin: 08/11/17 10:15 Dose: 2.5 mg Enoxaparin Sodium (Lovenox) 40 mg SC DAILY [facility] Last Admin: 08/11/17 10:21 Dose: 40 mg Levothyroxine Sodium (Synthroid) 25 mcg PO DAILY@0630 [facility] Last Admin: 08/11/17 05:32 Dose: 25 mcg Mirtazapine (Remeron) 7.5 mg PO HS [facility] Last Admin: 08/11/17 21:21 Dose: 7.5 mg Ondansetron HCl (Zofran Inj) 4 mg IVP Q4 PRN PRN Reason: vomitting Last Admin: 08/04/17 09:09 Dose: 4 mg Pantoprazole Sodium (Protonix Ec Tab) 40 mg PO DAILY [facility] Last Admin: 08/11/17 10:14 Dose: 40 mg - Labs Labs: 08/11/17 08:02 08/11/17 08:02 PT 13.6 SECONDS (9.7-12.2) H 07/27/17 10:30 INR 1.2 07/27/17 10:30 APTT 30 SECONDS (21-34) 07/27/17 10:30 - Constitutional Appears: No Acute Distress, Chronically Ill - Head Exam Head Exam: NORMAL INSPECTION - Eye Exam Eye Exam: Normal appearance - ENT Exam ENT Exam: Normal Exam - Neck Exam Neck Exam: Normal Inspection - Respiratory Exam Additional comments: Few rhonchi bilaterally. - Cardiovascular Exam Cardiovascular Exam: REGULAR RHYTHM - GI/Abdominal Exam GI & Abdominal Exam: Soft, Normal Bowel Sounds - Rectal Exam Rectal Exam: Deferred - Extremities Exam Additional comments: feet less cyanotic but still cold. - Back Exam Back Exam: NORMAL INSPECTION - Neurological Exam Neurological Exam: Alert, Awake - Psychiatric Exam Additional comments: Confused. - Skin Skin Exam: Dry, Warm Assessment and Plan (1) Hypokalemia Status: Resolved (2) Fall Status: Resolved (3) Anemia Status: Chronic (4) Malnutrition Status: Chronic (5) Fracture of right inferior pubic ramus Status: Acute (6) Esophageal candidiasis Status: Acute (7) Gastritis due to Helicobacter species Status: Acute
[2017-08-12] MEDS: Levothyroxine 25 MCG TAB PO SCH (06:09)
[2017-08-12] MEDS: Pantoprazole 40 mg EC Tab PO SCH (09:37)
[2017-08-12] MEDS: Enoxaparin 40 mg Syringe SC SCH (09:37)
--- NOTE | 2017-08-12 12:19 | PN ---
DATE: 08/12/2017 FOLLOWUP PROGRESS NOTE SUBJECTIVE: The patient is seen. The patient was noted by staff to be more drowsy today. She still has poor appetite. The patient is not agitated. She seems comfortable. The patient states she just wants to sleep. On review of her labs, the patient's calcium seems to be going low at 6.8 and her albumin is 1.9. The patient's appetite is still very poor. PHYSICAL EXAMINATION: VITAL SIGNS: Temperature is 97.4, pulse rate is 89, blood pressure 137/77, respirations 20, oxygen sat is 96%. The patient has a living will and does not want any PEG tube or NG tube to be placed. REVIEW OF SYSTEMS: GENERAL: The patient is drowsy, but arousable, seen in her room resting, not in any acute respiratory distress. SKIN: No diaphoresis. HEENT: Still hard of hearing, but responsive to questions. No headache. NECK: Supple. RESPIRATORY: No dyspnea. CARDIOVASCULAR: No chest pain. GASTROINTESTINAL: Very poor appetite. No nausea or vomiting. EXTREMITIES: The patient move extremities, not complaining of pain. MUSCULOSKELETAL: Feels week. NEUROLOGIC: Alert with periods of confusion. GENITOURINARY: No dysuria. MENTAL STATUS EXAMINATION: Elderly female, looked stated age, oriented to place and person, still has periods of confusion. Drowsy when seen today. Speech is slow. Affect is restricted. Mood is dysphoric. Thought process confused at time. Thought content, the patient still refusing to eat. No overt psychosis. No suicidal or homicidal ideation. The patient seems to be more comfortable. Attention and memory still limited. Insight and judgment limited. Impulse control is fair at this time. IMPRESSION: Delirium, metabolic encephalopathy, failure to thrive, dementia. PLAN AND RECOMMENDATIONS: The patient is seen, meds reviewed. Continue present psych meds. Continue treatment plan. Continue present meds as ordered. The patient will benefit from palliative care if the patient continues to eat poorly. Chin Kemp MD
--- NOTE | 2017-08-12 14:51 | CP.PCM.PN ---
Subjective - Date & Time of Evaluation Date of Evaluation: 08/12/17 Time of Evaluation: 14:48 - Subjective Subjective: Patient has no new complaints: "Everything is fine." Objective - Vital Signs/Intake and Output Vital Signs (last 24 hours): Temp Pulse Resp BP Pulse Ox 97.4 F L 89 20 137/77 96 08/12/17 08:23 08/12/17 08:23 08/12/17 08:23 08/12/17 08:23 08/12/17 08:23 Intake and Output: 08/12/17 08/12/17 06:59 18:59 Intake Total 410 480 Balance 410 480 - Medications Medications: Current Medications Atenolol (Tenormin) 50 mg PO DAILY [facility] Last Admin: 08/12/17 09:37 Dose: 50 mg Cyanocobalamin (Vitamin B12 1000 Mcg/Ml Inj) 1,000 mcg IM QD7 [facility] Dronabinol (Marinol) 2.5 mg PO DAILY [facility] Last Admin: 08/12/17 09:37 Dose: 2.5 mg Enoxaparin Sodium (Lovenox) 40 mg SC DAILY [facility] Last Admin: 08/12/17 09:37 Dose: 40 mg Levothyroxine Sodium (Synthroid) 25 mcg PO DAILY@0630 [facility] Last Admin: 08/12/17 06:09 Dose: 25 mcg Mirtazapine (Remeron) 7.5 mg PO HS [facility] Last Admin: 08/11/17 21:21 Dose: 7.5 mg Ondansetron HCl (Zofran Inj) 4 mg IVP Q4 PRN PRN Reason: vomitting Last Admin: 08/04/17 09:09 Dose: 4 mg Pantoprazole Sodium (Protonix Ec Tab) 40 mg PO DAILY [facility] Last Admin: 08/12/17 09:37 Dose: 40 mg - Labs Labs: 08/11/17 08:02 08/11/17 08:02 PT 13.6 SECONDS (9.7-12.2) H 07/27/17 10:30 INR 1.2 07/27/17 10:30 APTT 30 SECONDS (21-34) 07/27/17 10:30 - Constitutional Appears: No Acute Distress - Head Exam Head Exam: ATRAUMATIC, NORMOCEPHALIC - Neck Exam Neck Exam: absent: Lymphadenopathy, Thyromegaly - Respiratory Exam Respiratory Exam: NORMAL BREATHING PATTERN. absent: Rales, Rhonchi, Wheezes - Cardiovascular Exam Cardiovascular Exam: REGULAR RHYTHM, +S1, +S2. absent: Gallop, Rubs - GI/Abdominal Exam GI & Abdominal Exam: Distended, Soft, Normal Bowel Sounds. absent: Tenderness, Mass, Organomegaly - Rectal Exam Rectal Exam: Deferred - Extremities Exam Extremities Exam: absent: Calf Tenderness, Pedal Edema Assessment and Plan (1) Abdominal distention Assessment & Plan: Patient has evidence of esophageal candidiasis, H pylori infection on biopsy. Will start fluconazole. H pylori can be treated as an outpatient. Status: Acute
--- NOTE | 2017-08-12 18:07 | CP.PCM.PN ---
Subjective - Date & Time of Evaluation Date of Evaluation: 08/12/17 Time of Evaluation: 18:04 - Subjective Subjective: Patient alert, slightly confused, in no respiratory distress, with a poor appetite. Her feet now are no more cyanotic or cold. Objective - Vital Signs/Intake and Output Vital Signs (last 24 hours): Temp Pulse Resp BP Pulse Ox 97.3 F L 65 18 123/60 94 L 08/12/17 15:50 08/12/17 15:50 08/12/17 15:50 08/12/17 15:50 08/12/17 15:50 Intake and Output: 08/12/17 08/12/17 06:59 18:59 Intake Total 410 480 Balance 410 480 - Medications Medications: Current Medications Atenolol (Tenormin) 50 mg PO DAILY [facility] Last Admin: 08/12/17 09:37 Dose: 50 mg Cyanocobalamin (Vitamin B12 1000 Mcg/Ml Inj) 1,000 mcg IM QD7 [facility] Dronabinol (Marinol) 2.5 mg PO DAILY [facility] Last Admin: 08/12/17 09:37 Dose: 2.5 mg Enoxaparin Sodium (Lovenox) 40 mg SC DAILY [facility] Last Admin: 08/12/17 09:37 Dose: 40 mg Fluconazole (Diflucan) 200 mg PO DAILY [facility] Stop: 08/25/17 10:01 Levothyroxine Sodium (Synthroid) 25 mcg PO DAILY@0630 [facility] Last Admin: 08/12/17 06:09 Dose: 25 mcg Mirtazapine (Remeron) 7.5 mg PO HS [facility] Last Admin: 08/11/17 21:21 Dose: 7.5 mg Pantoprazole Sodium (Protonix Ec Tab) 40 mg PO DAILY [facility] Last Admin: 08/12/17 09:37 Dose: 40 mg - Labs Labs: 08/11/17 08:02 08/11/17 08:02 PT 13.6 SECONDS (9.7-12.2) H 07/27/17 10:30 INR 1.2 07/27/17 10:30 APTT 30 SECONDS (21-34) 07/27/17 10:30 - Constitutional Appears: No Acute Distress, Cachectic, Chronically Ill - Head Exam Head Exam: NORMAL INSPECTION - Eye Exam Eye Exam: Normal appearance - ENT Exam ENT Exam: Normal Exam - Neck Exam Neck Exam: Normal Inspection - Respiratory Exam Respiratory Exam: Clear to Ausculation Bilateral, NORMAL BREATHING PATTERN - Cardiovascular Exam Cardiovascular Exam: REGULAR RHYTHM, Murmur - GI/Abdominal Exam GI & Abdominal Exam: Soft, Normal Bowel Sounds - Rectal Exam Rectal Exam: Deferred - Extremities Exam Extremities Exam: Normal Inspection - Back Exam Back Exam: NORMAL INSPECTION - Neurological Exam Neurological Exam: Alert, Awake Additional comments: Still slightly confused. - Psychiatric Exam Psychiatric exam: Anxious - Skin Skin Exam: Dry, Intact, Normal Color, Warm Assessment and Plan (1) Hypokalemia Status: Resolved (2) Fall Status: Resolved (3) Anemia Status: Chronic (4) Malnutrition Assessment & Plan: Patient still refuses a PEG insertion for feeding. Status: Chronic (5) Fracture of right inferior pubic ramus Status: Acute (6) Esophageal candidiasis Assessment & Plan: Now on Diflucan. Status: Acute (7) Gastritis due to Helicobacter species Status: Acute
[2017-08-13] MEDS: Levothyroxine 25 MCG TAB PO SCH (06:22)
[2017-08-13 08:12] LABS: ALKALINE PHOSPHATASE 104 U/L (38-126); ALT/SGPT 27 U/L (9-52); AST/SGOT 17 U/L (14-36); BILIRUBIN,TOTAL 0.9 mg/dL (0.2-1.3); BLOOD UREA NITROGEN 12 mg/dL (7-17); CALCIUM 6.8 mg/dl (8.6-10.4); CARBON DIOXIDE 31 mmol/L (22-30); CHLORIDE 98 mmol/L (98-107); GFR AFRICAN-AMERICAN > 60; GLUCOSE,RANDOM 81 mg/dL (65-105); POTASSIUM 3.3 mmol/L (3.6-5.2); SODIUM 131 mmol/L (132-148)
[2017-08-13 08:18] LABS: BASO % 0.2 % (0.0-2.0); EOS % 0.2 % (0.0-4.0); HEMATOCRIT 31.8 % (34.0-47.0); LYMPH # 1.1 K/uL (1.0-4.3); LYMPH % 25.7 % (20.0-40.0); MEAN CELL VOLUME 93.6 fL (81.0-99.0); MEAN CORPUSCULAR HEMOGLOBIN 30.5 pg (27.0-31.0); MEAN CORPUSCULAR HGB CONC 32.6 g/dL (33.0-37.0); MEAN PLATELET VOLUME 7.7 fL (7.2-11.7); MONO # 0.2 K/uL (0.0-0.8); MONO % 4.5 % (0.0-10.0); NRBC % 0.3 % (0.0-2.0); RED CELL DISTRIBUTION WIDTH 15.6 % (11.5-14.5); WHITE BLOOD COUNT 4.3 K/uL (4.8-10.8)
[2017-08-13] MEDS: Enoxaparin 40 mg Syringe SC SCH (09:14)
[2017-08-13] MEDS: Pantoprazole 40 mg EC Tab PO SCH (09:15)
[2017-08-13] MEDS ORDERED: Potassium Chloride 20 mEq ER Tab PO ONE (10:00)
--- NOTE | 2017-08-13 14:49 | PN ---
DATE: 08/13/2017 SUBJECTIVE: The patient is more alert, but still confused and refusing to eat. Her son will be coming later today to discuss with staff about possible palliative care. The patient is on Marinol and Remeron, but has very poor intake. She drank half of the Ensure today. The patient also was started with Diflucan. PHYSICAL EXAMINATION: VITAL SIGNS: Temperature is 98.4, pulse is 71, blood pressure 131/66, respirations 20, oxygen sat is 97%. REVIEW OF SYSTEMS: GENERAL: The patient is alert, somewhat hard of hearing, but still periods of confusion, seen in her room, resting, refusing to eat. SKIN: No diaphoresis. HEENT: The patient is not complaining of headache. No dizziness. Hard of hearing. NECK: Supple. RESPIRATORY: No dyspnea. CARDIOVASCULAR: No chest pain. GASTROINTESTINAL: Appetite is very, very poor. No nausea. No vomiting. EXTREMITIES: The patient is moving extremities. MUSCULOSKELETAL: Feels weak. NEUROLOGIC: Alert with periods of confusion. GENITOURINARY: No dysuria. CODE STATUS: The patient is currently DNR and DNI. MENTAL STATUS EXAMINATION: A chronically ill elderly female, who looks cachectic, oriented to place and person. Mood is dysphoric, depressed. Affect is reactive. Speech is spontaneous. She is more alert compared to last few days, still refusing to eat. She said she has no appetite. Thought process is confused at times. Thought content, refusing to eat, no overt psychosis, no suicidal or homicidal ideations. Attention and memory seem to be impaired. Insight and judgment impaired. Impulse control is fair at this time. IMPRESSION: Delirium, metabolic encephalopathy, dementia, and failure to thrive. PLAN AND RECOMMENDATIONS: The patient is seen, meds reviewed. Continue present psych meds as ordered. We will monitor p.o. intake. This patient has a living will and does not want NGT and also does not want PEG tube, to consider palliative care for this patient. Her son is coming later today to discuss with staff about possible palliative care. Has a very poor p.o. intake. Chin Kemp MD Psychiatric # [id number] MTDD
--- NOTE | 2017-08-13 16:17 | CP.PCM.PN ---
Subjective - Date & Time of Evaluation Date of Evaluation: 08/13/17 Time of Evaluation: 16:15 - Subjective Subjective: PT CLEARED FOR D/C TO [facility]. PT'S SON IS IN AGREEMENT WITH D/C TODAY KNOWING THAT THE PT HAS A VERY POOR APPETITE. OK PER DR. UPTON TO D/ C TODAY IF THE SON IS IN AGREEMENT. MED REC COMPLETED, TO CONTINUE DIFLUCAN PO X13 DAYS. SW TO ARRANGE TRANSPORT TO [facility]. NO FURTHER ORDERS. Objective - Vital Signs/Intake and Output Vital Signs (last 24 hours): Temp Pulse Resp BP Pulse Ox 98.4 F 71 20 131/66 97 08/13/17 08:14 08/13/17 08:14 08/13/17 08:14 08/13/17 08:14 08/13/17 08:14 Intake and Output: 08/13/17 08/13/17 06:59 18:59 Intake Total 540 1420 Balance 540 1420 - Medications Medications: Current Medications Atenolol (Tenormin) 50 mg PO DAILY [facility] Last Admin: 08/13/17 09:15 Dose: 50 mg Cyanocobalamin (Vitamin B12 1000 Mcg/Ml Inj) 1,000 mcg IM QD7 [facility] Dronabinol (Marinol) 2.5 mg PO DAILY [facility] Last Admin: 08/13/17 09:14 Dose: 2.5 mg Enoxaparin Sodium (Lovenox) 40 mg SC DAILY [facility] Last Admin: 08/13/17 09:14 Dose: 40 mg Fluconazole (Diflucan) 200 mg PO DAILY [facility] Stop: 08/25/17 10:01 Last Admin: 08/13/17 09:14 Dose: 200 mg Levothyroxine Sodium (Synthroid) 25 mcg PO DAILY@0630 [facility] Last Admin: 08/13/17 06:22 Dose: 25 mcg Mirtazapine (Remeron) 7.5 mg PO HS [facility] Last Admin: 08/12/17 22:16 Dose: 7.5 mg Pantoprazole Sodium (Protonix Ec Tab) 40 mg PO DAILY [facility] Last Admin: 08/13/17 09:15 Dose: 40 mg - Labs Labs: 08/13/17 07:43 08/13/17 07:43 PT 13.6 SECONDS (9.7-12.2) H 07/27/17 10:30 INR 1.2 07/27/17 10:30 APTT 30 SECONDS (21-34) 07/27/17 10:30
[2017-08-13 16:27] VITALS: BP 119/68; PULSE 68; RESP 18; TEMP 97.9; O2SAT 99
[2017-08-13] MEDS ORDERED: Potassium Chloride 20 mEq/15 ml LIQ UD PO STA (19:18)
[2017-08-14 06:06] LABS: HOMOCYSTEINE 17.7 umol/L (<10.4)
--- NOTE | 2017-08-16 09:15 | VASCLAB ---
STUDY DESCRIPTION: HISTORY: Leg pain PRIORS: None. TECHNIQUE: Pulse volume recording waveforms and segmental pressures of bilateral lower extremities at multiple levels were obtained. Ankle Brachial Indices (ABIs) were calculated. Report prepared by YON Hoover, RVT RIGHT LOWER EXTREMITY: * Brachial artery: Pressure - 127 mmHg. * High thigh: Pressure - 220 mmHg: Ratio - NC: PVR waveform - Pulsatile * Low thigh: Pressure - 182 mmHg: Ratio - 1.43 PVR waveform: Pulsatile * Calf: Pressure - 220 mmHg: Ratio - NC PVR waveform: Pulsatile * Posterior tibial Artery: Pressure - 220 mmHg: Ratio - NC PVR waveform: Pulsatile * Dorsalis pedis Artery: Pressure - 164 mmHg: Ratio - 1.29 PVR waveform: Pulsatile * Great toe: Pressure - mmHg: Ratio - PVR waveform: Ankle brachial index (GERARDO): NC LEFT LOWER EXTREMITY: * Brachial artery: Pressure - mmHg. * High thigh: Pressure - 220 mmHg: Ratio - NC: PVR waveform - Pulsatile * Low thigh: Pressure - 184 mmHg: Ratio - 1.45 PVR waveform: Pulsatile * Calf: Pressure - 220 mmHg: Ratio - NC PVR waveform: Pulsatile * Posterior tibial Artery: Pressure - 220 mmHg: Ratio - NC PVR waveform: Pulsatile * Dorsalis pedis Artery: Pressure - 199 mmHg: Ratio - 1.57 PVR waveform: Pulsatile * Great toe: Pressure - mmHg: Ratio - PVR waveform: Ankle brachial index (GERARDO): NC OTHER FINDINGS: Bilateral metatarsal pulse volume recording waveforms are suggestive of distal small artery level diseases. IMPRESSION: Right: The ankle pressure index of the right lower extremity is non-diagnostic due to possible arterial wall calcifications. Left: The ankle pressure index of the left lower extremity is non-diagnostic due to possible arterial wall calcifications. Recommend CT angiogram.
--- NOTE | 2017-08-16 10:55 | CP.PCM.DIS ---
Provider - Provider Date of Admission: 07/27/17 12:08 Attending physician: Anupam Young MD Primary care physician: Anupam Young M.D. Consults: Dr Winston Gurrola, Dr. Zoran Obrien, Dr. Sherif Mckeon Jr, Dr. Chin Dalal. Time Spent in preparation of Discharge (in minutes): 45 Diagnosis - Discharge Diagnosis (1) Hypokalemia Status: Resolved Comment: Replace K+ with KCl. (2) Fall Status: Resolved (3) Anemia Status: Chronic Comment: Patient received Vitamin B12. (4) Malnutrition Status: Chronic Comment: Patient received Ensure supplements. (5) Fracture of right inferior pubic ramus Status: Acute Comment: Conservative treatment. (6) Esophageal candidiasis Status: Acute Comment: Patient receive Diflucan 200 mg PO qd for 14 days. (7) Gastritis due to Helicobacter species Status: Acute Comment: Patient on Protonix. H.Pylori treatment after discharge. (8) Senile dementia Status: Chronic Comment: Patient is in Remeron. (9) Depressive disorder Status: Acute Comment: Patient is on Marinol. Hospital Course - Lab Results Lab Results: Micro Results 07/28/17 Unknown Stool Stool Culture - Final NO SALMONELLA, SHIGELLA OR CAMPYLOBACTER ISOLATED. Most Recent Lab Values WBC 4.3 K/uL (4.8-10.8) L 08/13/17 07:43 RBC 3.40 Mil/uL (3.80-5.20) L 08/13/17 07:43 Hgb 10.4 g/dL (11.0-16.0) L 08/13/17 07:43 Hct 31.8 % (34.0-47.0) L 08/13/17 07:43 MCV 93.6 fL (81.0-99.0) 08/13/17 07:43 MCH 30.5 pg (27.0-31.0) 08/13/17 07:43 MCHC 32.6 g/dL (33.0-37.0) L 08/13/17 07:43 RDW 15.6 % (11.5-14.5) H 08/13/17 07:43 Plt Count 185 K/uL (130-400) 08/13/17 07:43 MPV 7.7 fL (7.2-11.7) 08/13/17 07:43 Neut % (Auto) 69.4 % (50.0-75.0) 08/13/17 07:43 Lymph % (Auto) 25.7 % (20.0-40.0) 08/13/17 07:43 Miller % (Auto) 4.5 % (0.0-10.0) 08/13/17 07:43 Eos % (Auto) 0.2 % (0.0-4.0) 08/13/17 07:43 Baso % (Auto) 0.2 % (0.0-2.0) 08/13/17 07:43 Neut # 3.0 K/uL (1.8-7.0) 08/13/17 07:43 Lymph # 1.1 K/uL (1.0-4.3) 08/13/17 07:43 Miller # 0.2 K/uL (0.0-0.8) 08/13/17 07:43 Eos # 0.0 K/uL (0.0-0.7) 08/13/17 07:43 Baso # 0.0 K/uL (0.0-0.2) 08/13/17 07:43 Neutrophils % (Manual) 88 % (50-75) H 07/27/17 10:30 Band Neutrophils % 3 % (0-2) H 07/27/17 10:30 Lymphocytes % (Manual) 7 % (20-40) L 07/27/17 10:30 Monocytes % (Manual) 2 % (0-10) 07/27/17 10:30 Platelet Estimate Normal (NORMAL) 07/27/17 10:30 Polychromasia Slight 07/27/17 10:30 Hypochromasia (manual) Slight 07/27/17 10:30 Anisocytosis (manual) Slight 07/27/17 10:30 Ovalocytes Slight 07/27/17 10:30 PT 13.6 SECONDS (9.7-12.2) H 07/27/17 10:30 INR 1.2 07/27/17 10:30 APTT 30 SECONDS (21-34) 07/27/17 10:30 Sodium 131 mmol/L (132-148) L 08/13/17 07:43 Potassium 3.3 mmol/L (3.6-5.2) L 08/13/17 07:43 Chloride 98 mmol/L (98-107) 08/13/17 07:43 Carbon Dioxide 31 mmol/L (22-30) H 08/13/17 07:43 Anion Gap 5 (10-20) L 08/13/17 07:43 BUN 12 mg/dL (7-17) 08/13/17 07:43 Creatinine 0.6 mg/dL (0.7-1.2) L 08/13/17 07:43 Est GFR ( Amer) > 60 08/13/17 07:43 Est GFR (Non-Af Amer) > 60 08/13/17 07:43 POC Glucose (mg/dL) 93 mg/dL (65-110) 08/09/17 06:28 Random Glucose 81 mg/dL (65-105) 08/13/17 07:43 Calcium 6.8 mg/dl (8.6-10.4) L 08/13/17 07:43 Phosphorus 3.3 mg/dL (2.5-4.5) 07/31/17 06:32 Magnesium 1.7 mg/dL (1.6-2.3) 07/31/17 06:32 Iron 21 ug/dL (37-170) L 07/28/17 06:49 TIBC 181 ug/dL (250-450) L 07/28/17 06:49 % Saturation 12 (20-55) L 07/28/17 06:49 Ferritin 173.0 ng/mL 07/28/17 06:49 Total Bilirubin 0.9 mg/dL (0.2-1.3) 08/13/17 07:43 AST 17 U/L (14-36) 08/13/17 07:43 ALT 27 U/L (9-52) 08/13/17 07:43 Alkaline Phosphatase 104 U/L (38-126) 08/13/17 07:43 Total Creatine Kinase 223 U/L (30-135) H 07/27/17 10:30 Troponin I 0.0120 ng/mL (0.00-0.120) 07/27/17 10:30 Total Protein 4.0 g/dL (6.3-8.3) L 08/13/17 07:43 Albumin 2.0 g/dL (3.5-5.0) L 08/13/17 07:43 Globulin 2.0 gm/dL (2.2-3.9) L 08/13/17 07:43 Albumin/Globulin Ratio 1.0 (1.0-2.1) 08/13/17 07:43 Amylase 41 U/L (30-110) 07/29/17 07:18 Lipase 41 U/L (23-300) 07/29/17 07:18 Carcinoembryonic Ag 5.6 ng/mL (0-3.0) H 07/29/17 07:18 CA 19-9 Antigen 22.7 U/mL (0-37) 07/29/17 07:18 CA 125 Antigen 194 U/mL (0-35) H 07/29/17 07:18 Vitamin B12 288 pg/mL (239-931) 07/29/17 07:18 Methylmalonic Acid 1378 nmol/L (87-318) H 08/03/17 14:41 Folate 11.2 ng/mL 07/29/17 07:18 Gastrin 36 pg/mL (<=100) 08/03/17 14:41 Homocysteine 17.7 umol/L ( <10.4) H 08/13/17 07:43 TSH 3rd Generation 2.55 mIU/L (0.46-4.68) 08/03/17 06:36 Stool Fat, Qual See note 07/28/17 14:00 Stool Occult Blood Negative (NEGATIVE) 07/28/17 14:10 Stool Leukocytes, Qual Negative (NEGATIVE) 07/27/17 Unknown Anti-Parietal Cell Ab Negative (Negative) 08/03/17 14:41 Intrins Factor Block Ab Negative (Negative) 08/03/17 14:41 C. difficile Ag & Toxin Negative (NEGATIVE) 08/02/17 17:05 - Hospital Course Hospital Course: 87 yo female felt at home and hit her right hip to the floor. She was brought to the ED at [facility] because of pain of the right hip. She denies any loss of conciousness. Known to have a hypertension, a hypothyroidism , on Atenolol, HCTZ, Levothyroxine, she was found to have K+: 2.4 a serum protein:5.3 and an Albumin: 2.8. A CT scan of the pelvis revealed a non- displaced fracture of the inferior ramus of the pubic bone. A chest CT disclosed nodules in the right and left lungs. Patient was evaluated by Dr Obrien , a life specialist, who advised observation, and conservative treatment because of the frail condition of the patient. Because of previous history of chronic diarrhea, and anemia, the patient underwent an upper EGD which revealed mild gastritis. Biopsy showed esophageal Candidiasis and H. Pylori. Because the patient was unable to undergo a full colonoscopy, a sigmoidoscopy was performed on 08/04/[address] Vivar. Few benign appearance polyps were biopsy. During the hospital stay, the patient has a very poor appetite, and required IVF because of dehydration, and Ensure supplement. She was always slightly confused. She was evaluated by Dr Dalal who diagnosed her of having senile dementia and depressio. She was put on Remeron and Marinol. On 08/07/2017, she feet became cyanotic and cold. She was evaluated by Dr Linda Jr who advised medical management with hydration and ASA. The cyanosis of the feet resolved. An arterial doppler of the lower extremities were unconclusive. She gradually improved, became more alert, with a better appetite. She was discharged to a subacute rehabilitation unit on 08/13/2017 in a stable condition. The patient has a will in which she refuses any NGT placement for artificial feeding, she also requests DNR and DNI, CPR. - Date & Time of H&P Date of H&P: 07/27/17 Discharge Exam - Head Exam Head Exam: NORMAL INSPECTION - Eye Exam Eye Exam: Normal appearance - Neck Exam Neck exam: Normal Inspection - Respiratory Exam Additional comments: Few rhonchi heard bilaterally. - Cardiovascular Exam Cardiovascular Exam: REGULAR RHYTHM - GI/Abdominal Exam GI & Abdominal Exam: Normal Bowel Sounds, Unremarkable - Rectal Exam Rectal Exam: Deferred - Extremities Exam Extremities exam: normal inspection - Back Exam Back exam: NORMAL INSPECTION - Neurological Exam Neurological exam: Alert Additional comments: Slightly confused. - Psychiatric Exam Additional comments: Slightly confused. Discharge Plan - Follow Up Plan Condition: FAIR Disposition: TRANSF TO SNF Instructions: Gastritis (DC), Colonoscopy (DC), Syncope (DC), Fall Prevention for Older Adults (GEN), Upper Endoscopy (DC), Anemia (DC), Fall Prevention (DC) , Full Liquid Diet (DC) Additional Instructions: MAY CONTACT DR. YOUNG FOR INFORMATION REGARDING HOSPITALIZATION. CONTINUE MEDICATIONS PER THE MED REC FORM. CONTINUE DIFLUCAN PO X13 DAYS. CHANGES CAN BE MADE BY ADMITTING PHYSICIAN. PHYSICAL THERAPY TOLERATED. ADVANCE DIET TOLERATED. ENCOURAGE TO EAT. ASSIST WITH ALL MEALS. Referrals: Zoran Obrien MD [Staff Provider] - Chin Dalal MD [Staff Provider] - Sherif Lozada Jr., MD [Staff Provider] - Anupam Young MD [Staff Provider] - Winston Gurrola MD [Staff Provider] -
== END 2017-08-13 19:55 | DRG 535 ==
LOC: C.ER 07:52 → C.9E 12:08 → C.6T 13:42
PROVIDERS: ADMIT Internal Medicine Cardiovascular Disease; ATTEND Internal Medicine Cardiovascular Disease
PROC: 0DB98ZX Excision of Duodenum, Via Natural or Artificial Opening Endoscopic, Diagnostic (ICD-10-PCS; 2017-08-02)
PROC: 0DB68ZX Excision of Stomach, Via Natural or Artificial Opening Endoscopic, Diagnostic (ICD-10-PCS; principal; 2017-08-02 08:15)
PROC: 0DBP8ZX Excision of Rectum, Via Natural or Artificial Opening Endoscopic, Diagnostic (ICD-10-PCS; 2017-08-04)
PROC: 0DBN8ZX Excision of Sigmoid Colon, Via Natural or Artificial Opening Endoscopic, Diagnostic (ICD-10-PCS; 2017-08-04)
DX: S32.591A Other specified fracture of right pubis, initial encounter for closed fracture (principal); G93.41 Metabolic encephalopathy; E87.6 Hypokalemia; R64 Cachexia; E46 Unspecified protein-calorie malnutrition; B37.81 Candidal esophagitis; K56.7 Ileus, unspecified; K31.84 Gastroparesis; Z68.1 Body mass index [BMI] 19.9 or less, adult; E86.0 Dehydration; W19.XXXA Unspecified fall, initial encounter; D64.9 Anemia, unspecified; R62.7 Adult failure to thrive; E03.9 Hypothyroidism, unspecified; F03.90 Unspecified dementia, unspecified severity, without behavioral disturbance, psychotic disturbance, mood disturbance, and anxiety; F32.9 Major depressive disorder, single episode, unspecified; I10 Essential (primary) hypertension; I67.2 Cerebral atherosclerosis; I73.9 Peripheral vascular disease, unspecified; K29.40 Chronic atrophic gastritis without bleeding; D12.5 Benign neoplasm of sigmoid colon; K62.1 Rectal polyp; K63.89 Other specified diseases of intestine; M16.10 Unilateral primary osteoarthritis, unspecified hip; M85.80 Other specified disorders of bone density and structure, unspecified site; H91.90 Unspecified hearing loss, unspecified ear; Z66 Do not resuscitate; Y92.009 Unspecified place in unspecified non-institutional (private) residence as the place of occurrence of the external cause